=== PATIENT | female | born 1945 | race Caucasian/White ===

== ENCOUNTER 2018-02-12 11:32 | Observation (INO) ==
--- NOTE | 2018-02-12 12:52 | Emergency Department Note ---
Disposition Clinical Impression: Syncope Fracture of proximal end of left humerus Qualifiers: Encounter type: initial encounter Fracture type: closed Fracture alignment: nondisplaced Disposition: Admitted As Inpatient Referrals: Archana Saravia, B[employer] PIERCER [Primary Care Provider] - General Adult HPI - General Chief complaint: ED Fall Stated complaint: fall Time Seen by Provider: 02/12/18 11:39 Source: patient, EMS Limitations: no limitations - History of Present Illness Pain Scale: 7 - Related Data Home Medications Medication Instructions Recorded Confirmed Albuterol Sulfate [Albuterol 1 puff IH QID 06/18/15 01/22/18 Inhaler] FLUoxetine HCl [Prozac] 40 mg PO DAILY 06/18/15 01/22/18 Fenofibrate [Lofibra] 160 mg PO DAILY 06/18/15 01/22/18 Fluticasone Propionate [Flovent 1 puff IH BID 06/18/15 01/22/18 Diskus] Furosemide [Lasix] 40 mg PO DAILY 06/18/15 01/22/18 Ipratropium [Atrovent Inhaler] 2 puff IH QID 06/18/15 01/22/18 Lansoprazole [Prevacid] 30 mg PO DAILY 06/18/15 01/22/18 Lidocaine Patch [Lidoderm 5% patch] 1 appl TP DAILY PRN 06/18/15 01/22/18 OxyCODONE/APAP 5/325 [Percocet 1 each PO Q6HR PRN 06/18/15 01/22/18 5/325 MG] Pravastatin Sodium [Pravachol] 80 mg PO DAILY 06/18/15 01/22/18 hydrOXYzine HCl [Hydroxyzine HCl] 25 mg PO TID PRN 06/18/15 01/22/18 Aspirin [Adult Low Dose Aspirin EC] 81 mg PO DAILY 07/03/15 01/22/18 Albuterol Neb [Proventil Neb] 2.5 mg IH QID 12/24/15 01/22/18 Metoprolol XL (24 HR) Succ [Toprol 12.5 mg PO DAILY 12/24/15 01/22/18 XL] DiphenhydraMINE [Benadryl] 25 mg PO BID PRN 01/22/18 01/22/18 Previous Rx's Medication Instructions Recorded Cyanocobalamin (B-12) [Vitamin B12] 1,000 mcg PO DAILY #90 tablet 07/24/17 Folic Acid 1 tab PO DAILY #90 tablet 07/24/17 Doxycycline 100 mg PO BID #20 capsule 01/22/18 Hydroxyurea [Hydrea] 1 cap PO AD #60 capsule 01/22/18 Allergies Allergy/AdvReac Type Severity Reaction Status Date / Time prednisone Allergy Intermediate Hives Verified 02/12/18 11:39 gabapentin [From Neurontin] AdvReac Unknown Nausea Verified 02/12/18 11:39 ibuprofen AdvReac Unknown Hives Verified 02/12/18 11:39 naproxen [From Naprosyn] AdvReac Unknown Nausea Verified 02/12/18 11:39 Past Medical History - Past Medical History Medical history: Reports: arthritis, asthma, atrial fibrillation, cancer, COPD, coronary artery disease, CVA, GERD, hyperlipidemia, myocardial infarction, osteoporosis, other Surgical history: Reports: appendectomy, cataract, cholecystectomy, hysterectomy , orthopedic, other Psychiatric history: Reports: no psych history ENERGY ASSISTANT history: Reports: no ENERGY ASSISTANT history - Social History Smoking Status: Light tobacco smoker Smokeless Tobacco Status: No Alcohol use: Reports: none Drug use: Reports: none Physical Exam - General Limitations: no limitations General appearance: alert, in distress Course Vital Signs Temperature 98.2 F 02/12/18 11:35 Pulse Rate 79 02/12/18 11:35 Respiratory Rate 18 02/12/18 11:35 Blood Pressure 112/73 02/12/18 11:35 O2 Sat by Pulse Oximetry 97 02/12/18 11:35 Temperature 98.2 F 02/12/18 11:40 Pulse Rate 79 02/12/18 11:40 Respiratory Rate 18 02/12/18 11:40 Blood Pressure 112/73 02/12/18 11:40 O2 Sat by Pulse Oximetry 97 02/12/18 11:40 Oxygen Delivery Oxygen Delivery Room Air Attestation Statement - Attestation Attestation: I examined this patient and my medical decision-making was reviewed with the Resident Physician. I agree with the documented findings, disposition and treatment plan as described except to the extent set forth below. 72-year-old female presented to the emergency room for left shoulder pain after syncopal episode in her bedroom at home. X-ray shows approximately humerus fracture. Patient needs to be admitted for syncope evaluation. That was recent of her fall. She has no chest pain at this time. She said no vomiting or diarrhea. No volume depletion history. Patient was placed in a sling and swath. Admit for syncope workup.
--- NOTE | 2018-02-12 12:54 | Emergency Department Note ---
Disposition Clinical Impression: Fracture of proximal end of left humerus Qualifiers: Encounter type: initial encounter Fracture type: closed Fracture morphology: unspecified fracture morphology Qualified Code(s): S42.202A - Unspecified fracture of upper end of left humerus, initial encounter for closed fracture Syncope Qualifiers: Syncope type: unspecified Qualified Code(s): R55 - Syncope and collapse Fracture of neck of humerus Qualifiers: Encounter type: initial encounter Fracture type: closed Laterality: left Qualified Code(s): S42.212A - Unspecified displaced fracture of surgical neck of left humerus, initial encounter for closed fracture Disposition: Admitted As Inpatient Condition: Fair Referrals: Archana Saravia, [employer] [Primary Care Provider] - Forms: ED Satisfaction Letter Time of Disposition: 14:21 Fall HPI - General Chief Complaint: ED Fall Stated Complaint: fall Time Seen by Provider: 02/12/18 11:39 Source: patient, EMS Mode of arrival: ambulatory Limitations: no limitations Nursing Notes Reviewed: Yes Vital Signs Reviewed: Yes - History of Present Illness HPI Narrative: Patient is a 72-year-old female who presents to [facility] ED status post fall. Patient states she was just standing there after going from her kitchen over to the living room and all of a sudden passed out. Denies any nausea, vomiting, fever or chills. No chest pain, difficulty breathing, abdominal pain, problems with urination or bowel movements. Patient fell and states she does remember hitting the floor. Denies any head or neck injury. States her left shoulder down to her left elbow hurts. 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 Denies: headache, neck pain , weakness, chest pain, shortness of breath, abdominal pain, unable to walk - Related Data Home Medications Medication Instructions Recorded Confirmed Albuterol Sulfate [Albuterol 1 puff IH QID 06/18/15 02/12/18 Inhaler] FLUoxetine HCl [Prozac] 40 mg PO DAILY 06/18/15 02/12/18 Fenofibrate [Lofibra] 160 mg PO DAILY 06/18/15 02/12/18 Fluticasone Propionate [Flovent 1 puff IH BID 06/18/15 02/12/18 Diskus] Furosemide [Lasix] 40 mg PO DAILY 06/18/15 02/12/18 Ipratropium [Atrovent Inhaler] 2 puff IH QID 06/18/15 02/12/18 Lansoprazole [Prevacid] 30 mg PO DAILY 06/18/15 02/12/18 Lidocaine Patch [Lidoderm 5% patch] 1 appl TP DAILY PRN 06/18/15 02/12/18 OxyCODONE/APAP 5/325 [Percocet 1 each PO Q6HR PRN 06/18/15 02/12/18 5/325 MG] Pravastatin Sodium [Pravachol] 80 mg PO DAILY 06/18/15 02/12/18 hydrOXYzine HCl [Hydroxyzine HCl] 25 mg PO TID PRN 06/18/15 02/12/18 Aspirin [Adult Low Dose Aspirin EC] 81 mg PO DAILY 07/03/15 02/12/18 Albuterol Neb [Proventil Neb] 2.5 mg IH QID 12/24/15 02/12/18 Metoprolol XL (24 HR) Succ [Toprol 12.5 mg PO DAILY 12/24/15 02/12/18 XL] DiphenhydraMINE [Benadryl] 25 mg PO BID PRN 01/22/18 02/12/18 Hydroxyurea [Hydrea] 500 mg PO Q48H 02/12/18 02/12/18 Previous Rx's Medication Instructions Recorded Cyanocobalamin (B-12) [Vitamin B12] 1,000 mcg PO DAILY #90 tablet 07/24/17 Folic Acid 1 tab PO DAILY #90 tablet 07/24/17 Allergies Allergy/AdvReac Type Severity Reaction Status Date / Time prednisone Allergy Intermediate Hives Verified 02/12/18 11:39 gabapentin [From Neurontin] AdvReac Unknown Nausea Verified 02/12/18 11:39 ibuprofen AdvReac Unknown Hives Verified 02/12/18 11:39 naproxen [From Naprosyn] AdvReac Unknown Nausea Verified 02/12/18 11:39 All systems ED: reviewed and negative except as stated. Fall PMH - Past Medical History Medical history: Reports: arthritis, asthma, atrial fibrillation, cancer, COPD, coronary artery disease, CVA, GERD, hyperlipidemia, myocardial infarction, osteoporosis, other Surgical history: Reports: appendectomy, cataract, cholecystectomy, hysterectomy , orthopedic, other Psychiatric history: Reports: no psych history PHOTOGRAPHER ASSISTANT history: Reports: no PHOTOGRAPHER ASSISTANT history - Social History Smoking Status: Light tobacco smoker Alcohol use: Reports: none Drug use: Reports: none Physical Exam - General Limitations: no limitations General appearance: alert, in distress - Head Head exam: atraumatic, normocephalic, normal inspection - Eye Eye exam: Present: normal appearance, PERRL, EOMI - ENT ENT exam: normal exam, normal oropharynx, mucous membranes moist - Neck Neck exam: Present: normal inspection, full ROM, trachea midline - Chest Chest inspection: Present: normal inspection, symmetric chest wall rise - Respiratory Respiratory exam: Present: normal lung sounds bilaterally - Cardiovascular Cardiovascular exam: Present: regular rate, normal rhythm, systolic murmur - Abdominal Exam Abdominal exam: Present: soft, Non-Tender. Absent: tenderness, distention, guarding, rebound, rigidity - Expanded Upper Extremity Exam Shoulder exam: Present: tenderness. Absent: full ROM Arm exam: Present: tenderness Elbow exam: Present: tenderness Forearm/Wrist exam: Present: tenderness Hand exam: Present: normal inspection Neurosensory exam: Normal: radial nerve, ulnar nerve, median nerve, axillary nerve Vascular exam: Normal: capillary refill, radial pulse - Back Exam Back exam: Present: normal inspection, full ROM. Absent: tenderness, vertebral tenderness - Neurological Exam Neurological exam: Present: alert, oriented X3. Absent: motor sensory deficit - Psychiatric Psychiatric exam: Present: normal affect, normal mood - Skin Skin exam: Present: warm, dry, intact, normal color Course Course Narrative: Patient seen and examined. Left-sided shoulder pain status post fall. Appears patient has had a syncopal episode. Will do syncopal workup and likely admit. - Reevaluation(s) Reevaluation #1: Labwork shows a mild leukocytosis, suspect this is more likely reactive. Chest x-ray and EKG unchanged from before. We will admit for syncopal workup. Her shoulder x-ray does show a left sided humeral neck fracture that is nondisplaced. I discussed with orthopedic surgeon Dr. Hughes who will consult on the patient. States this is non-op management and will just require a sling. I discussed with hospitalist Dr. Robert who has accepted patient for admission. Time: 14:20 Vital Signs Temperature 98.2 F 02/12/18 11:35 Pulse Rate 79 02/12/18 11:35 Respiratory Rate 18 02/12/18 11:35 Blood Pressure 112/73 02/12/18 11:35 O2 Sat by Pulse Oximetry 97 02/12/18 11:35 Temperature 98.2 F 02/12/18 11:40 Pulse Rate 61 02/12/18 13:45 Respiratory Rate 18 02/12/18 11:40 Blood Pressure 140/61 02/12/18 13:45 O2 Sat by Pulse Oximetry 97 02/12/18 11:40 Oxygen Delivery Oxygen Delivery Room Air Fall - Medical Records Medical records reviewed: Yes I reviewed the patient's medical records. - Lab Data Lab results reviewed: Yes I reviewed the patient's lab results. Result diagrams: 02/12/18 12:52 02/12/18 12:52 Lab Results 02/12/18 02/12/18 Range/Units 12:52 12:52 WBC 16.1 H (4.3-11.1) K/mcL RBC 3.08 L (3.82-4.97) M/mcL Hgb 11.0 L (11.5-15.4) g/dL Hct 32.8 L (35.3-44.9) % MCV 106.5 H (83.0-100.0) fL MCH 35.7 H (28.0-33.3) pg MCHC 33.5 (31.6-35.5) g/dL RDW 13.2 (11.5-14.5) % Plt Count 454 H (140-400) K/mcL MPV 10.4 (9.4-12.4) fL Immature Gran % 0.4 (0-4) % Seg Neutrophils % 83.1 % Lymphocytes % 8.3 % Monocytes % 6.9 % Eosinophils % 1.1 % Basophils % 0.2 % Neutrophils # 13.4 H (1.6-8.9) K/mcL Lymphocytes # 1.3 (0.6-4.6) K/mcL Monocytes # 1.1 (0.0-1.3) K/mcL Eosinophils # 0.2 (0.0-0.6) K/mcL Basophils # 0.0 (0.0-0.2) K/mcL Sodium 138 (136-145) mEq/L Potassium 4.4 (3.5-5.1) mEq/L Chloride 106 (98-107) mEq/L Carbon Dioxide 30 H (23-29) mEq/L Creatinine 0.87 (0.60-1.20) mg/dL Est GFR ( Amer) > 60 (> 60) Est GFR (Non-Af Amer) > 60 (> 60) Glucose 108 H (70-105) mg/dL Calcium 8.9 (8.6-10.3) mg/dL Troponin I < 0.03 (< 0.04) ng/mL - Radiology Data Radiology results reviewed: Yes I reviewed the patient's radiology results. Chest X-Ray 02/12/18 12:05 IMPRESSION: 1. Acute fracture noted through the left humeral head and neck. 2. No acute cardiopulmonary disease. 3. Unremarkable radiographs of the left wrist and elbow. 4. There is a radiopaque foreign body noted along the right paramidline of the upper chest, of uncertain etiology. D/ /12/2018 13:22:11 Tima Rodriguez MD / eulogio Interpreting Provider: Tima Rodriguez MD Elbow X-Ray 02/12/18 12:06 IMPRESSION: 1. Acute fracture noted through the left humeral head and neck. 2. No acute cardiopulmonary disease. 3. Unremarkable radiographs of the left wrist and elbow. 4. There is a radiopaque foreign body noted along the right paramidline of the upper chest, of uncertain etiology. D/ /12/2018 13:22:11 Tima Rodriguez MD / eulogio Interpreting Provider: Tima Rodriguez MD Shoulder X-Ray 02/12/18 12:06 IMPRESSION: 1. Acute fracture noted through the left humeral head and neck. 2. No acute cardiopulmonary disease. 3. Unremarkable radiographs of the left wrist and elbow. 4. There is a radiopaque foreign body noted along the right paramidline of the upper chest, of uncertain etiology. D/ /12/2018 13:22:11 Tima Rodriguez MD / eulogio Interpreting Provider: Tima Rodriguez MD Wrist X-Ray 02/12/18 12:06 IMPRESSION: 1. Acute fracture noted through the left humeral head and neck. 2. No acute cardiopulmonary disease. 3. Unremarkable radiographs of the left wrist and elbow. 4. There is a radiopaque foreign body noted along the right paramidline of the upper chest, of uncertain etiology. D/ / 02/12/2018 13:22:11 Tima Rodriguez MD / eulogio Interpreting Provider: Tima Rodriguez MD - EKG Data EKG attestation: Yes I reviewed and interpreted this EKG. EKG results narrative: EKG done at 1143 shows normal sinus rhythm with a rate of [address] elevation or depression noted. Left axis deviation. Inverted T waves in lead 3 and flattened T waves in leads aVF, V5 and V6. These are new compared to prior EKG done 05/18/2016.
[2018-02-12 13:11] LABS: Basophils % 0.2 %; Eosinophils # 0.2 K/mcL (0.0-0.6); Eosinophils % 1.1 %; Hematocrit 32.8 % (35.3-44.9); Immature Granulocytes % 0.4 % (0-4); Lymphocytes # 1.3 K/mcL (0.6-4.6); Lymphocytes % 8.3 %; Mean Corpuscular HGB Conc 33.5 g/dL (31.6-35.5); Mean Corpuscular Hemoglobin 35.7 pg (28.0-33.3); Mean Corpuscular Volume 106.5 fL (83.0-100.0); Mean Platelet Volume 10.4 fL (9.4-12.4); Monocytes # 1.1 K/mcL (0.0-1.3); Monocytes % 6.9 %; Neutrophils # 13.4 K/mcL (1.6-8.9); Platelet Count 454 K/mcL (140-400); Red Blood Count 3.08 M/mcL (3.82-4.97); Red Cell Distribution Width 13.2 % (11.5-14.5); Segmented Neutrophils % 83.1 %
[2018-02-12 13:28] LABS: Calcium 8.9 mg/dL (8.6-10.3); Carbon Dioxide 30 mEq/L (23-29); Chloride 106 mEq/L (98-107); Glucose 108 mg/dL (70-105); Potassium 4.4 mEq/L (3.5-5.1); Sodium 138 mEq/L (136-145); eGFR For Non-African Americans > 60 (> 60)
[2018-02-12 13:29] LABS: Troponin I < 0.03 ng/mL (< 0.04)
[2018-02-12] MEDS ORDERED: *HR* FentaNYL (PF) 100 MCG/2 ML VIAL IVP ONE (13:39)
[2018-02-12 14:30] LABS: BUN/Creatinine Ratio 7 (6-26); Blood Urea Nitrogen 6 mg/dL (8-23); Osmolality,Calculated 284 (280-300)
[2018-02-12] MEDS ORDERED: Naloxone 0.4 MG/ML INJ IVP PRN (15:38)
[2018-02-12] MEDS ORDERED: Acetaminophen 325 MG TABLET PO PRN (15:38)
[2018-02-12] MEDS ORDERED: hydrOXYzine pamoate 25 MG CAPSULE PO PRN (15:52)
[2018-02-12] MEDS ORDERED: Hydroxyurea 500 MG CAPSULE PO SCH (16:00)
[2018-02-12] MEDS ORDERED: Nicotine 7 MG PATCH.TD24 TD PRN (16:07)
--- NOTE | 2018-02-12 16:09 | Internal Med History&Physical ---
<Alfonso Braga Lacy - Last Filed: 02/12/18 15:47> Date of Encounter: 02/12/18 Time of Encounter: 15:48 Internal Medicine - H&P: HPI Chief complaint: syncope/fall Admitted From: Emergency Dept Plans for Post Hospital Care: Home History of present illness: Ms. Campos is a 72 year old female with a past medical history of arthritis, asthma, atrial fibrillation, hysterectomy secondary to cervical pathology, COPD , coronary artery disease, CVA, GERD, hyperlipidemia, myocardial infarction, osteoporosis, essential thrombocytosis. She presented to the [place] ED after a syncopal episode with a fall. She states she was standing in her kitchen and when she walked into her bedroom she stopped because she was short of breath, at which point she felt light headed and blacked out, waking up on the ground. She does not remember if she hit her head or not. Upon waking she called for help from her home health aide, the fall was not witnessed. She denied chest pain, palpitations, or vertigo prior to the fall. She also mentions increased cough and sputum production recently. She smokes 5 cigarettes per day and has a 25 pack year history. She denies drug or alcohol use. She denies recent travel. She does complain of lower extremity weakness secondary to pain from knee replacements and deconditioning. Past Med Surg Social Fam HX - Past Medical History Medical history: arthritis, asthma, atrial fibrillation, cancer, COPD, coronary artery disease, CVA, GERD, hyperlipidemia, myocardial infarction, osteoporosis, other Additional medical history: CA of blood, OA, IBS Psychiatric history: depression - Past Surgical History Surgical History: appendectomy, cataract, cholecystectomy, hysterectomy, orthopedic, other Additional surgical history: left knee, left shoulder, right shoulder, nicolasa hips , nicolasa feet - Social History Smoking Status: Light tobacco smoker Smokeless Tobacco Status: No Alcohol use: none Drug use: none - Family History Mother History Unknown: Yes Father History Unknown: Yes Internal Medicine - H&P: Meds Albuterol Sulfate [Albuterol Inhaler] 1 puff IH QID 06/18/15 [History] FLUoxetine HCl [Prozac] 40 mg PO DAILY 06/18/15 [History] Fenofibrate [Lofibra] 160 mg PO DAILY 06/18/15 [History] Fluticasone Propionate [Flovent Diskus] 1 puff IH BID 06/18/15 [History] Furosemide [Lasix] 40 mg PO DAILY 06/18/15 [History] Ipratropium [Atrovent Inhaler] 2 puff IH QID 06/18/15 [History] Lansoprazole [Prevacid] 30 mg PO DAILY 06/18/15 [History] Lidocaine Patch [Lidoderm 5% patch] 1 appl TP DAILY PRN 06/18/15 [History] OxyCODONE/APAP 5/325 [Percocet 5/325 MG] 1 each PO Q6HR PRN 06/18/15 [History] Pravastatin Sodium [Pravachol] 80 mg PO DAILY 06/18/15 [History] hydrOXYzine HCl [Hydroxyzine HCl] 25 mg PO TID PRN 06/18/15 [History] Aspirin [Adult Low Dose Aspirin EC] 81 mg PO DAILY 07/03/15 [History] Albuterol Neb [Proventil Neb] 2.5 mg IH QID 12/24/15 [History] Metoprolol XL (24 HR) Succ [Toprol XL] 12.5 mg PO DAILY 12/24/15 [History] Cyanocobalamin (B-12) [Vitamin B12] 1,000 mcg PO DAILY #90 tablet 07/24/17 [Rx] Folic Acid 1 tab PO DAILY #90 tablet 07/24/17 [Rx] DiphenhydraMINE [Benadryl] 25 mg PO BID PRN 01/22/18 [History] Hydroxyurea [Hydrea] 500 mg PO Q48H 02/12/18 [History] 3 Allergy/AdvReac Type Severity Reaction Status Date / Time prednisone Allergy Intermediate Hives Verified 02/12/18 11:39 gabapentin [From Neurontin] AdvReac Unknown Nausea Verified 02/12/18 11:39 ibuprofen AdvReac Unknown Hives Verified 02/12/18 11:39 naproxen [From Naprosyn] AdvReac Unknown Nausea Verified 02/12/18 11:39 All Systems PM: A 10-system review of systems was performed and is negative for pertinent findings except as documented above in the HPI. - Constitutional Constitutional: fatigue, falls, no chills, no fever(s) - EENT Eyes: no other visual disturbances Ears: no other Nose, mouth and throat: no other - Cardiovascular Cardiovascular ROS IM: dyspnea on exertion, lightheadedness, syncope, no diaphoresis, no irregular heart rhythm, no palpitations - Respiratory Respiratory: cough, dyspnea on exertion, excessive phlegm production, no hemoptysis - Gastrointestinal Gastrointestinal: no other - Genitourinary Genitourinary: no urinary frequency, no urinary urgency - Musculoskeletal Musculoskeletal ROS IM: deformity, muscle weakness - Neurological Neurological ROS: frequent falls, vertigo, no abnormal speech, no behavioral changes, no confusion, no focal weakness, no headache(s), no loss of vision, no memory loss, no numbness - Psychiatric Psychiatric: depression, no confusion - Hematologic/Lymphatic Hematologic/Lymphatic: no easy bruising - Constitutional Vitals: Temp Pulse Resp BP Pulse Ox 98.2 F 66 16 128/66 96 02/12/18 11:40 02/12/18 14:00 02/12/18 14:00 02/12/18 14:00 02/12/18 14:32 Exam: Patient in no acute distress, alert and oriented 3 Cranial nerves II through XII intact Heart in regular rate and rhythm, 2/6 systolic murmur, no gallop Diffuse scattered wheezes auscultated, no rales or rhonchi Abdomen soft and nontender, bowel sounds normal, no organomegaly Sensation intact and equal in all [address] on left upper extremity, capillary refill and sensation and motor strength intact in left upper extremity No focal neural deficits noted Skin warm and dry Internal Med - H&P Results - Labs CBC & Chem 7: 02/12/18 12:52 02/12/18 12:52 - Assessment and plan (1) Syncope Current Visit: Yes Status: Acute Assessment and plan: Patient presented for episode of syncope with fall, she states she has a history of multiple falls X-ray in the emergency department revealed left proximal humerus fracture Orthopedic surgery was consulted who recommended conservative management with sling Chest x-ray revealed no acute process Troponin less than 0.3 EKG showed new T-wave flattening otherwise normal CBC showed thrombocytosis and elevated white count BMP noncontributory Plan Differential includes stroke, valvular abnormality, medications, arrhythmia Head CT, echocardiogram, carotid duplex ordered and pending Patient is being admitted on continuous telemetry UA and UDS ordered and pending Serial troponins ordered and pending We will continue to monitor and follow up on labs and imaging Qualifiers: Syncope type: unspecified Qualified Code(s): R55 - Syncope and collapse (2) Fracture of neck of humerus Current Visit: Yes Status: Acute Assessment and plan: Patient is in sling and comfortable Capillary refill, pulses, sensation, motor intact in left upper extremity Plan Continue sling with outpatient follow-up with orthopedics after discharge Pain control with Percocet every 6 hours when necessary Rest of plan as seen above Qualifiers: Encounter type: initial encounter Fracture type: closed Laterality: left Qualified Code(s): S42.212A - Unspecified displaced fracture of surgical neck of left humerus, initial encounter for closed fracture (3) Tobacco abuse Current Visit: Yes Status: Acute Assessment and plan: Patient admits to [id number] history and current cigarette use Patient was counseled on dangers of continued tobacco abuse and benefits of cessation Plan Nicotine patch as needed for cravings We will continue to activities counselor on smoking cessation (4) COPD (chronic obstructive pulmonary disease) with emphysema Current Visit: Yes Status: Acute Assessment and plan: Patient self-reported history of COPD with emphysema Treated at home in stable on bronchodilator therapy Patient is saturating in the 90s on room air Plan Continue patient's home medications of albuterol, Flovent, ipratropium, albuterol nebulizer Qualifiers: Emphysema type: unspecified Qualified Code(s): J43.9 - Emphysema, unspecified (5) CAD (coronary artery disease) Current Visit: Yes Status: Acute Assessment and plan: Patient has history of UT at the age of 44 She has history of recent stress test in November that was uneventful She has history of catheterization without stent placement She does follow with cardiology outpatient Plan Continue home medications of aspirin, pravachol, toprol Qualifiers: Coronary Disease-Associated Artery/Lesion type: [place] artery [place] vs. transplanted heart: [place] heart Associated angina: without angina Qualified Code(s): I25.10 - Atherosclerotic heart disease of [place] coronary artery without angina pectoris (6) Hypertension Current Visit: Yes Status: Acute Assessment and plan: Patient with history of chronic hypertension, blood pressure stable here Plan Continue home medication of Toprol Qualifiers: Qualified Code(s): I10 - Essential (primary) hypertension - Time Spent With Patient Total time spent is greater than 50% in coordination of care (as documented) at patient's floor/unit and/or counseling patient: 25 - 35 minutes <Magdiel Ramos - Last Filed: 02/12/18 17:22> Date of Encounter: 02/12/18 Internal Medicine - H&P: HPI History of present illness: Ms. Campos is a 72 year old female All Systems PM: A 10-system review of systems was performed and is negative for pertinent findings except as documented above in the HPI. - Constitutional Vitals: Temp Pulse Resp BP Pulse Ox 97.9 F 69 16 116/72 93 02/12/18 17:15 02/12/18 17:15 02/12/18 17:15 02/12/18 17:15 02/12/18 17:15 Internal Med - H&P Results - Labs CBC & Chem 7: 02/12/18 12:52 02/12/18 12:52 - Assessment and plan (1) Syncope Current Visit: Yes Status: Acute Qualifiers: Syncope type: unspecified Qualified Code(s): R55 - Syncope and collapse (2) Fracture of neck of humerus Current Visit: Yes Status: Acute Qualifiers: Encounter type: initial encounter Fracture type: closed Laterality: left Qualified Code(s): S42.212A - Unspecified displaced fracture of surgical neck of left humerus, initial encounter for closed fracture (3) Tobacco abuse Current Visit: Yes Status: Acute (4) COPD (chronic obstructive pulmonary disease) with emphysema Current Visit: Yes Status: Acute Qualifiers: Emphysema type: unspecified Qualified Code(s): J43.9 - Emphysema, unspecified (5) CAD (coronary artery disease) Current Visit: Yes Status: Acute Qualifiers: Coronary Disease-Associated Artery/Lesion type: [place] artery [place] vs. transplanted heart: [place] heart Associated angina: without angina Qualified Code(s): I25.10 - Atherosclerotic heart disease of [place] coronary artery without angina pectoris (6) Hypertension Current Visit: Yes Status: Acute Qualifiers: Qualified Code(s): I10 - Essential (primary) hypertension - Time Spent With Patient Total time spent is greater than 50% in coordination of care (as documented) at patient's floor/unit and/or counseling patient: - Attending Attestation I examined this patient and my medical decision-making was reviewed with the Resident Physician Dr. Braga. I agree with the documented findings, disposition and treatment plan as described except to the extent set forth below. Ms. Campos is a 72 year old female with a past medical history of arthritis, asthma, atrial fibrillation, hysterectomy secondary to cervical pathology, COPD , coronary artery disease, CVA, GERD, hyperlipidemia, myocardial infarction, osteoporosis, essential thrombocytosis. She presented to the [place] ED after a syncopal episode with a fall. She did not provide clear history about fall, loss of consciousness. She did have syncopal episode in the past too. She happened to have Left humeral fx Gen: A, A< O x 3 Chest: Diminished BS b/l Heart: S1S2+ RRR Ext: sling on Left arm.. Limited ROM in Left shoulder a/p 1. Syncope on tele check serial trop concerning for cardiac arrythamias need holter monitor for 1-2 weeks upon d/c home Ortho stats slightly positive too will check Ortho stat vitals in AM too 2D Echo, carotid doppler - P 2. Left humerus fx - Ortho consulted
[2018-02-12] MEDS ORDERED: Ipratropium 1 PUFF INHALER IH SCH (17:00)
[2018-02-12] MEDS ORDERED: Albuterol 2.5 MG/3 ML NEBULIZER IH SCH (17:00)
[2018-02-12 17:14] LABS: Prothrombin Time 11.7 Seconds (9.4-12.1)
[2018-02-12] MEDS: *HR* OxyCODONE/APAP 5/325 TABLET PO PRN ×2 (17:29→23:53)
[2018-02-12] MEDS ORDERED: Beclomethasone 80mcg MDI IH SCH (22:00)
[2018-02-12] MEDS: Albuterol 2.5 MG/3 ML NEBULIZER IH SCH (22:36)
[2018-02-12] MEDS: Ipratropium 1 PUFF INHALER IH SCH (22:36)
[2018-02-13 01:19] LABS: Basophils % 0.3 %; Eosinophils # 0.2 K/mcL (0.0-0.6); Eosinophils % 2.4 %; Hematocrit 28.7 % (35.3-44.9); Hemoglobin 9.5 g/dL (11.5-15.4); Immature Granulocytes % 0.3 % (0-4); Mean Corpuscular HGB Conc 33.1 g/dL (31.6-35.5); Mean Corpuscular Hemoglobin 34.4 pg (28.0-33.3); Mean Platelet Volume 10.7 fL (9.4-12.4); Monocytes # 1.1 K/mcL (0.0-1.3); Monocytes % 15.7 %; Neutrophils # 3.9 K/mcL (1.6-8.9); Platelet Count 414 K/mcL (140-400); Red Blood Count 2.76 M/mcL (3.82-4.97); Red Cell Distribution Width 13.4 % (11.5-14.5); Segmented Neutrophils % 55.3 %
[2018-02-13 01:21] LABS: Lymphocytes # 1.9 K/mcL (0.6-4.6)
[2018-02-13 01:40] LABS: BUN/Creatinine Ratio 9 (6-26); Blood Urea Nitrogen 8 mg/dL (8-23); Calcium 8.6 mg/dL (8.6-10.3); Carbon Dioxide 24 mEq/L (23-29); Chloride 104 mEq/L (98-107); Glucose 122 mg/dL (70-105); Osmolality,Calculated 280 (280-300); Potassium 4.2 mEq/L (3.5-5.1); Sodium 135 mEq/L (136-145); eGFR For Non-African Americans > 60 (> 60)
[2018-02-13] MEDS: Albuterol 2.5 MG/3 ML NEBULIZER IH SCH ×2 (03:49→10:47)
[2018-02-13] MEDS: Ipratropium 1 PUFF INHALER IH SCH ×2 (03:49→10:47)
[2018-02-13] MEDS: *HR* OxyCODONE/APAP 5/325 TABLET PO PRN (06:02)
--- NOTE | 2018-02-13 08:57 | Electrocardiograph Report ---
[facility] Test Date: 2018-02-12 Pat Name: Azul Campos Department: EXAM8 Room: [facility] Gender: F Acute Care Certified Nursing Assistant: : 1945 Requested By: Andrea Guidry Order Number: [id number] Reading MD: Rogelio Scott Measurements Intervals Whitt Rate: 76 P: -9 OR: 131 QRS: 0 QRSD: 85 T: 0 QT: 392 QTc: 441 Interpretive Statements Sinus rhythm Low voltage, precordial leads Borderline T abnormalities, anterior leads, present 05/2016 Electronically Signed On 02-13-2018 8:55:08 EDT by Rogelio Scott
[2018-02-13] MEDS ORDERED: Furosemide 40 MG TABLET PO SCH (09:00)
[2018-02-13] MEDS ORDERED: Cyanocobalamin (B-12) 1,000 MCG TABLET PO SCH (09:00)
[2018-02-13] MEDS ORDERED: FLUoxetine 20 MG CAPSULE PO SCH (09:00)
[2018-02-13] MEDS ORDERED: Aspirin Enteric Coated 81 MG Tablet PO SCH (09:00)
[2018-02-13] MEDS ORDERED: Fenofibrate 54 MG TABLET PO SCH (09:00)
[2018-02-13] MEDS ORDERED: Folic Acid 1 MG TABLET PO SCH (09:00)
[2018-02-13] MEDS ORDERED: Metoprolol XL (24 HR) Succ 25 MG TAB.ER.24H PO SCH (09:00)
--- NOTE | 2018-02-13 09:44 | Internal Med Progress Note ---
Hospitalist Progress Note - Encounter Date of Encounter: 02/13/18 Time of Encounter: 09:38 - Subjective Interval History: Patient seen and examined this morning, no acute events overnight Patient states that she had conversations with multiple doctors last night who advised her that she did not need echocardiogram or carotid Dopplers I have not seen any documentation of these conversations, I advised her that we are still recommending these tests to rule out cardiovascular etiology of her syncopal episodes resulting in falls She has stated that she is not willing to have these tests, I explained to her the importance of ruling out dangerous causes of her syncope, she is adamant that these other doctors said she does not need these tests and she agrees with them I advised her that she has the autonomy to leave AGAINST MEDICAL ADVICE however it is not what we are recommending - Exam Vitals: Temp Pulse Resp BP Pulse Ox 98.2 F 69 16 105/56 93 02/13/18 06:15 02/13/18 06:15 02/13/18 06:15 02/13/18 06:15 02/13/18 06:15 Exam: Patient in no acute distress, alert and oriented 3 Cranial nerves II through XII intact Heart in regular rate and rhythm, 2/6 systolic murmur, no gallop Diffuse scattered wheezes auscultated, no rales or rhonchi Abdomen soft and nontender, bowel sounds normal, no organomegaly Sensation intact and equal in all [address] on left upper extremity, capillary refill and sensation and motor strength intact in left upper extremity No focal neural deficits noted Skin warm and dry - Assessment and Plan (1) Syncope Current Visit: Yes Status: Acute Assessment and Plan: Patient presented for episode of syncope with fall, she states she has a history of multiple falls X-ray in the emergency department revealed left proximal humerus fracture Orthopedic surgery was consulted who recommended conservative management with sling Chest x-ray revealed no acute process Troponin less than 0.3 EKG showed new T-wave flattening otherwise normal CBC showed thrombocytosis and elevated white count BMP noncontributory Head CT negative for acute process or bleed serial troponins negative Plan Differential includes stroke, valvular abnormality, medications, arrhythmia echocardiogram, carotid duplex ordered and pending Patient is being monitored on continuous telemetry UA and UDS ordered and pending PT/OT consulted, older adult social work specialist consulted We will continue to monitor and follow up on labs and imaging (2) Fracture of neck of humerus Current Visit: Yes Status: Acute Assessment and Plan: Patient is in sling and comfortable Capillary refill, pulses, sensation, motor intact in left upper extremity Plan Continue sling with outpatient follow-up with orthopedics after discharge Pain control with Percocet every 6 hours when necessary Orthopedics consulted and recommends sling and outpatient follow up Rest of plan as seen above (3) Tobacco abuse Current Visit: Yes Status: Acute Assessment and Plan: Patient admits to [id number] history and current cigarette use Patient was counseled on dangers of continued tobacco abuse and benefits of cessation Plan Nicotine patch as needed for cravings We will continue to world travel counselor on smoking cessation (4) COPD (chronic obstructive pulmonary disease) with emphysema Current Visit: Yes Status: Acute Assessment and Plan: Patient self-reported history of COPD with emphysema Treated at home in stable on bronchodilator therapy Patient is saturating in the 90s on room air Plan Continue patient's home medications of albuterol, Flovent, ipratropium, albuterol nebulizer (5) CAD (coronary artery disease) Current Visit: Yes Status: Acute Assessment and Plan: Patient has history of [place] at the age of 44 She has history of recent stress test in November that was uneventful She has history of catheterization without stent placement She does follow with cardiology outpatient Plan Continue home medications of aspirin, pravachol, toprol (6) Hypertension Current Visit: Yes Status: Acute Assessment and Plan: Patient with history of chronic hypertension, blood pressure stable here Plan Continue home medication of Toprol - Time Spent with Patient Total time spent is greater than 50% in coordination of care (as documented) at patient's floor/unit and/or counseling patient: Internal Medicine: Result - Labs CBC & Chem 7: 02/13/18 01:00 02/13/18 01:00 Labs: Short CBC 02/13/18 Range/Units 01:00 WBC 7.1 D (4.3-11.1) K/mcL Hgb 9.5 L D (11.5-15.4) g/dL Hct 28.7 L (35.3-44.9) % Plt Count 414 H (140-400) K/mcL Neutrophils # 3.9 (1.6-8.9) K/mcL BMP 02/13/18 01:00 Sodium 135 L Potassium 4.2 Chloride 104 Carbon Dioxide 24 BUN 8 Creatinine 0.85 Glucose 122 H Calcium 8.6 Cardiac Enzymes 02/12/18 02/13/18 02/13/18 Range/Units 19:20 01:00 06:53 Troponin I < 0.03 < 0.03 < 0.03 (< 0.04) ng/mL - ABG Interpretation ABG results: PT/INR, D-dimer PT 11.7 Seconds (9.4-12.1) 02/12/18 16:36 - Impressions Impressions Head CT 02/12/18 15:52 IMPRESSION: A small amount of low-density is noted in the white matter, likely small vessel ischemic change Nose no acute hemorrhage. D/ / Syed Acosta / Syed Acosta Interpreting Provider: Syed Acosta Consult Discharge Plan - Plan Additional Instructions: PLEASE CALL YOUR PCP, GO TO THE NEAREST EMERGENCY ROOM OR CALL 02-03-, IF YOU FEEL DIZZY, SHORT OF BREATH, UNWELL, IF SYMPTOMS RETURN OR WORSEN. PLEASE USE ICE PACKS ON YOUR LEFT ARM FRACTURE FOR PAIN AND SWELLING. PLEASE KEEP LEFT ARM IN SLING TO PROVIDE SUPPORT AND PREVENT FURTHER INJURY. Referrals: Magdaleno Hughes MD [Non-Partnered Physician] - 02/22/18 11:20 am (7-10 DAYS) (1) Syncope Qualifiers: Syncope type: unspecified Qualified Code(s): R55 - Syncope and collapse (2) Fracture of neck of humerus Qualifiers: Encounter type: initial encounter Fracture type: closed Laterality: left Qualified Code(s): S42.212A - Unspecified displaced fracture of surgical neck of left humerus, initial encounter for closed fracture (4) COPD (chronic obstructive pulmonary disease) with emphysema Qualifiers: Emphysema type: unspecified Qualified Code(s): J43.9 - Emphysema, unspecified (5) CAD (coronary artery disease) Qualifiers: Coronary Disease-Associated Artery/Lesion type: [place] artery [place] vs. transplanted heart: [place] heart Associated angina: without angina Qualified Code(s): I25.10 - Atherosclerotic heart disease of [place] coronary artery without angina pectoris
--- NOTE | 2018-02-13 10:06 | Orthopedic Consult Note ---
Date of Encounter: 02/13/18 Time of Encounter: 10:04 Assessment and Plan (1) Fracture of proximal end of left humerus Current Visit: Yes Status: Acute The diagnosis and recommended treatment options were discussed with the patient. Recommend to continue with nonoperative management for the left proximal humerus. Continue the sling that she is currently in. Follow up in 1- 2 weeks for repeat x-rays. She may come out of the sling to move her wrist and elbow only, no shoulder motion. Will sign off. Qualifiers: Encounter type: initial encounter Fracture type: closed Fracture morphology: unspecified fracture morphology Qualified Code(s): S42.202A - Unspecified fracture of upper end of left humerus, initial encounter for closed fracture History of Present Illness HPI: Ms. Campos is a 72 year old female with a past medical history of arthritis, asthma, atrial fibrillation, COPD, coronary artery disease, CVA, GERD, hyperlipidemia, myocardial infarction, osteoporosis, essential thrombocytosis admitted after a syncopal episode causing a fall. She became short of breath at home then felt lightheaded and blacked out. She woke up on the ground and does not remember specifically falling. No chest pain prior to fall. Unsure if she hit her head or not. She she was admitted for syncopal workup, in the emergency department she complained of left shoulder pain and an x-ray was obtained which showed a minimally displaced left proximal humerus fracture. She was then placed in a sling and orthopedic was consulted. Past Med Surg Social Fam HX - Past Medical History Medical history: arthritis, asthma, atrial fibrillation, cancer, COPD, coronary artery disease, CVA, GERD, hyperlipidemia, myocardial infarction, osteoporosis, other Additional medical history: CA of blood, OA, IBS Psychiatric history: depression - Past Surgical History Surgical History: appendectomy, cataract, cholecystectomy, hysterectomy, orthopedic, other Additional surgical history: left knee, left shoulder, right shoulder, nicolasa hips , nicolasa feet - Social History Smoking Status: Light tobacco smoker Smokeless Tobacco Status: No Alcohol use: none Drug use: none - Family History Mother History Unknown: Yes Father History Unknown: Yes Age: 66 Living Status: Age at : 66 Cause of : Heart attack Hx Family Cardiac Disorders: Yes (Heart disease) Medications and Allergies Albuterol Sulfate [Albuterol Inhaler] 1 puff IH QID 06/18/15 [History] FLUoxetine HCl [Prozac] 40 mg PO DAILY 06/18/15 [History] Fenofibrate [Lofibra] 160 mg PO DAILY 06/18/15 [History] Fluticasone Propionate [Flovent Diskus] 1 puff IH BID 06/18/15 [History] Furosemide [Lasix] 40 mg PO DAILY 06/18/15 [History] Ipratropium [Atrovent Inhaler] 2 puff IH QID 06/18/15 [History] Lansoprazole [Prevacid] 30 mg PO DAILY 06/18/15 [History] Lidocaine Patch [Lidoderm 5% patch] 1 appl TP DAILY PRN 06/18/15 [History] OxyCODONE/APAP 5/325 [Percocet 5/325 MG] 1 each PO Q6HR PRN 06/18/15 [History] Pravastatin Sodium [Pravachol] 80 mg PO DAILY 06/18/15 [History] hydrOXYzine HCl [Hydroxyzine HCl] 25 mg PO TID PRN 06/18/15 [History] Aspirin [Adult Low Dose Aspirin EC] 81 mg PO DAILY 07/03/15 [History] Albuterol Neb [Proventil Neb] 2.5 mg IH QID 12/24/15 [History] Metoprolol XL (24 HR) Succ [Toprol XL] 12.5 mg PO DAILY 12/24/15 [History] Cyanocobalamin (B-12) [Vitamin B12] 1,000 mcg PO DAILY #90 tablet 07/24/17 [Rx] Folic Acid 1 tab PO DAILY #90 tablet 07/24/17 [Rx] DiphenhydraMINE [Benadryl] 25 mg PO BID PRN 01/22/18 [History] Hydroxyurea [Hydrea] 500 mg PO Q48H 02/12/18 [History] Colesevelam HCl [Welchol] 625 mg PO TIDWM 02/13/18 [History] 3 Allergy/AdvReac Type Severity Reaction Status Date / Time prednisone Allergy Intermediate Hives Verified 02/12/18 11:39 gabapentin [From Neurontin] AdvReac Unknown Nausea Verified 02/12/18 11:39 ibuprofen AdvReac Unknown Hives Verified 02/12/18 11:39 naproxen [From Naprosyn] AdvReac Unknown Nausea Verified 02/12/18 11:39 All Systems Reviewed: The remainder of the systems were reviewed and are negative except as noted in the HPI Physical Exam - Constitutional Vitals: Temp Pulse Resp BP Pulse Ox 98.2 F 69 16 105/56 93 02/13/18 06:15 02/13/18 06:15 02/13/18 06:15 02/13/18 06:15 02/13/18 06:15 Exam: Consult Exam: Constitutional -Vitals reviewed -The patient is well developed and well nourished. -Mood is pleasant. -The patient is well groomed. Psychiatric -The patient is fully alert and oriented x 3. Respiratory: -Respiratory effort normal Abdomen: -Soft abdomen -Non tender -Non distended: Left upper extremity: -No deformities. The overlying skin is intact. Tenderness to palpation at proximal humerus, no tenderness at elbow or wrist -No significant pain with passive motion of the wrist, and fingers within the limits of the bed. -Able to make an "OK" sign, cross the index and long fingers, and extend the thumb. -Sensation grossly intact to light touch throughout the median, radial, and ulnar distributions. -Radial pulse is present; Fingers have good capillary refill. Right upper extremity: -No deformities. The overlying skin is intact. No obvious signs of acute trauma. -No tenderness to palpation throughout. -No significant pain with passive motion of the shoulder, elbow, wrist, and fingers within the limits of the bed. -Able to make an "OK" sign, cross the index and long fingers, and extend the thumb. -Sensation grossly intact to light touch throughout the median, radial, and ulnar distributions. -Radial pulse is present; Fingers have good capillary refill. Left lower extremity: -No deformities. The overlying skin is intact. No obvious signs of acute trauma. -No tenderness to palpation throughout. -No pain with passive motion of the hip, knee, ankle, and toes within the limits of the bed. -No pain with axial loading of the thigh. -Able to dorsiflex and plantarflex the ankle and toes. -Sensation is grossly intact to light touch throughout the sural, saphenous, superficial peroneal, and deep peroneal distributions. -Toes have good capillary refill. Right lower extremity: -No deformities. The overlying skin is intact. No obvious signs of acute trauma. -No tenderness to palpation throughout. -No pain with passive motion of the hip, knee, ankle, and toes within the limits of the bed. -No pain with axial loading of the thigh. -Able to dorsiflex and plantarflex the ankle and toes. -Sensation is grossly intact to light touch throughout the sural, saphenous, superficial peroneal, and deep peroneal distributions. -Toes have good capillary refill. Results - Labs Result Diagrams: 02/13/18 01:00 02/13/18 01:00 Labs: Abnormal lab results RBC 2.76 M/mcL (3.82-4.97) L 02/13/18 01:00 Hgb 9.5 g/dL (11.5-15.4) L D 02/13/18 01:00 Hct 28.7 % (35.3-44.9) L 02/13/18 01:00 MCV 104.0 fL (83.0-100.0) H 02/13/18 01:00 MCH 34.4 pg (28.0-33.3) H 02/13/18 01:00 Plt Count 414 K/mcL (140-400) H 02/13/18 01:00 Sodium 135 mEq/L (136-145) L 02/13/18 01:00 Glucose 122 mg/dL (70-105) H 02/13/18 01:00 LDL Cholesterol, Calc 108 mg/dL (0-99) H 02/12/18 16:36 HDL Cholesterol 31 mg/dL (40-59) L 02/12/18 16:36 Cholesterol/HDL Ratio 5.0 (0-4.9) H 02/12/18 16:36 H & H 02/13/18 Range/Units 01:00 Hgb 9.5 L D (11.5-15.4) g/dL Hct 28.7 L (35.3-44.9) % All other labs normal. - Diagnostic results Shoulder x-ray: report reviewed, image reviewed (XR L shoulder reviewed and shows minimally displaced left proximal humerus fracture) Consult Discharge Plan - Plan Referrals: Magdaleno Hughes MD [Non-Partnered Physician] - (7-10 DAYS)
[2018-02-13 12:01] VITALS: BP 134/62
--- NOTE | 2018-02-13 14:32 | Discharge Summary ---
<Alfonso Braga - Last Filed: 02/13/18 14:26> - NOTES TO OUTPATIENT PROVIDER Notes to Outpatient Provider: Patient presented with fall after a syncopal episode. She was found to have a left proximal humerus fracture, orthopedics consultation and recommended sling and outpatient follow-up. Workup for syncopal episode included chest x-ray, head CT, EKG, troponins that were all negative for acute process. Echocardiogram and carotid duplex were pending when the patient decided to sign out AMA. It is recommended that the patient receive these tests on an outpatient basis in order to rule out cardiovascular etiology for her syncopal episodes. Orders not resulted at time of discharge: Pending orders 02/12/18 15:46 Urine tox screen [Drug Screen, Urine] [[facility]] Routine Date of Encounter: 02/13/18 Time of Encounter: 14:32 - Discharge Diagnosis (1) Syncope Priority: Primary Status: Acute Assessment and Plan: Patient presented for episode of syncope with fall, she states she has a history of multiple falls X-ray in the emergency department revealed left proximal humerus fracture Orthopedic surgery was consulted who recommended conservative management with sling Chest x-ray revealed no acute process Troponin less than 0.3 EKG showed new T-wave flattening otherwise normal CBC showed thrombocytosis and elevated white count BMP noncontributory Head CT negative for acute process or bleed serial troponins negative Patient stated that she was told that echocardiogram and carotid ultrasound were not necessary for her medical care. I told her that I do not see documentation of those conversations and then I still recommend echocardiogram and carotid ultrasound in order to rule out cardiovascular etiology for her syncopal episodes. I explained to her that in absence of these tests she was at risk for further syncopal episodes and falls with possible trauma, and that she is also at risk for other cardiovascular events if there is indeed an underlying pathophysiology causing her syncope. Plan Differential includes stroke, valvular abnormality, medications, arrhythmia echocardiogram, carotid duplex ordered and pending Patient is being monitored on continuous telemetry UA and UDS ordered and pending PT/OT consulted, security services manager consulted Patient left AGAINST MEDICAL ADVICE before these tests could be completed, it is recommended that she follow-up with her primary care provider and perform these tests on an outpatient basis in order to rule out morbid etiologies for her syncopal episodes and falls Qualifiers: Syncope type: unspecified Qualified Code(s): R55 - Syncope and collapse (2) Fracture of neck of humerus Priority: Secondary Status: Acute Assessment and Plan: Patient is in sling and comfortable Capillary refill, pulses, sensation, motor intact in left upper extremity Plan Continue sling with outpatient follow-up with orthopedics after discharge Pain control with Percocet every 6 hours when necessary Orthopedics consulted and recommends sling and outpatient follow up Rest of plan as seen above Qualifiers: Encounter type: initial encounter Fracture type: closed Laterality: left Qualified Code(s): S42.212A - Unspecified displaced fracture of surgical neck of left humerus, initial encounter for closed fracture (3) Tobacco abuse Priority: Secondary Status: Acute Assessment and Plan: Patient admits to [id number] history and current cigarette use Patient was counseled on dangers of continued tobacco abuse and benefits of cessation Plan Nicotine patch as needed for cravings We will continue to licensed professional counselor on smoking cessation (4) COPD (chronic obstructive pulmonary disease) with emphysema Priority: Secondary Status: Acute Assessment and Plan: Patient self-reported history of COPD with emphysema Treated at home in stable on bronchodilator therapy Patient is saturating in the 90s on room air Plan Discharge on patient's home medications of albuterol, Flovent, ipratropium, albuterol nebulizer Qualifiers: Emphysema type: unspecified Qualified Code(s): J43.9 - Emphysema, unspecified (5) CAD (coronary artery disease) Priority: Secondary Status: Acute Assessment and Plan: Patient has history of [place] at the age of 44 She has history of recent stress test in November that was uneventful She has history of catheterization without stent placement She does follow with cardiology outpatient Plan Discharge on home medications of aspirin, pravachol, toprol Qualifiers: Coronary Disease-Associated Artery/Lesion type: [place] artery [place] vs. transplanted heart: [place] heart Associated angina: without angina Qualified Code(s): I25.10 - Atherosclerotic heart disease of [place] coronary artery without angina pectoris (6) Hypertension Priority: Secondary Status: Acute Assessment and Plan: Patient with history of chronic hypertension, blood pressure stable here Plan Discharge on home medication of Toprol Qualifiers: Qualified Code(s): I10 - Essential (primary) hypertension Hospital course: Ms. Campos is a 72 year old female with a past medical history of arthritis, asthma, atrial fibrillation, hysterectomy secondary to cervical pathology, COPD , coronary artery disease, CVA, GERD, hyperlipidemia, myocardial infarction, osteoporosis, essential thrombocytosis. She presented to the [place] ED after a syncopal episode with a fall. She stated she was standing in her kitchen and when she walked into her bedroom she stopped because she was short of breath, at which point she felt light headed and blacked out, waking up on the ground with left shoulder pain. She did not remember if she hit her head or not. Upon waking she called for help from her home health aide, the fall was not witnessed. She denied chest pain, palpitations, or vertigo prior to the fall. She also mentioned increased cough and sputum production recently. She smokes 5 cigarettes per day and has a 25 pack year history. She denied drug or alcohol use. She denied recent travel. She did complain of lower extremity weakness secondary to pain from knee replacements and deconditioning. In the emergency department chest x-ray, EKG, troponins were all performed which were negative for acute process. X-ray of the left humerus, elbow, arm and wrist revealed proximal left humeral fracture. Orthopedic surgery was consulted who recommended the patient be put in a sling and follow-up with them outpatient for management, surgery was not recommended. Upon admission serial troponins, head CT, UA, UDS, echocardiogram, carotid duplex were all ordered. Head CT revealed no acute process, serial troponins were negative. Patient was informed of the reasoning and importance of echocardiogram and carotid duplex to rule out cardiovascular etiology for her syncopal episodes and falls. She was informed that not receiving these tests could leave her at risk for unknown cardiovascular or traumatic complications. She stated that she understood but did not believe that these tests were necessary and that she wanted to leave AGAINST MEDICAL ADVICE. The patient did leave AGAINST MEDICAL ADVICE without completing echocardiogram, carotid duplex, UDA, UDS. Discharge discussed with: patient, nurse, social work - Time Spent with Patient Total time spent providing and/or coordinating discharge services: Greater than 30 minutes - Discharge Medications Home Medications: Albuterol Sulfate [Albuterol Inhaler] 1 puff IH QID 06/18/15 [History] FLUoxetine HCl [Prozac] 40 mg PO DAILY 06/18/15 [History] Fenofibrate [Lofibra] 160 mg PO DAILY 06/18/15 [History] Fluticasone Propionate [Flovent Diskus] 1 puff IH BID 06/18/15 [History] Furosemide [Lasix] 40 mg PO DAILY 06/18/15 [History] Ipratropium [ATROVENT Inhaler] 2 puff IH QID 06/18/15 [History] Lansoprazole [Prevacid] 30 mg PO DAILY 06/18/15 [History] Lidocaine Patch [Lidoderm 5% patch] 1 appl TP DAILY PRN 06/18/15 [History] Pravastatin Sodium [Pravachol] 80 mg PO DAILY 06/18/15 [History] hydrOXYzine HCl [Hydroxyzine HCl] 25 mg PO TID PRN 06/18/15 [History] Aspirin [Adult Low Dose Aspirin EC] 81 mg PO DAILY 07/03/15 [History] Albuterol Neb [Proventil Neb] 2.5 mg IH QID 12/24/15 [History] Metoprolol XL (24 HR) Succ [Toprol Xl] 12.5 mg PO DAILY 12/24/15 [History] Cyanocobalamin (B-12) [Vitamin B12] 1,000 mcg PO DAILY #90 tablet 07/24/17 [Rx] Folic Acid 1 tab PO DAILY #90 tablet 07/24/17 [Rx] Hydroxyurea [Hydrea] 500 mg PO Q48H 02/12/18 [History] Colesevelam HCl [Welchol] 625 mg PO TIDWM 02/13/18 [History] Allergies/Adverse Reactions: 3 Allergy/AdvReac Type Severity Reaction Status Date / Time prednisone Allergy Intermediate Hives Verified 02/12/18 11:39 gabapentin [From Neurontin] AdvReac Unknown Nausea Verified 02/12/18 11:39 ibuprofen AdvReac Unknown Hives Verified 02/12/18 11:39 naproxen [From Naprosyn] AdvReac Unknown Nausea Verified 02/12/18 11:39 Date of admission: 02/12/18 14:54 Primary care physician: Archana Saravia CNP Consults: 02/13/18 10:38 Consult to Datawarehouse Developer [CONS] Routine Reason for SW Consult: ASSESS DISCHARGE NEEDS 02/13/18 10:42 Consult to Occupational Therapy [CONS] Routine Comment: Evaluate, develop and implement POC Reason for Consult: LEFT HUMEROUS FRACTURE- ASSESS FOR SAFETY Does patient have active BEDREST order?: No Is patient medically & hemodynamically stable?: Yes Consult to Physical Therapy [CONS] Routine Comment: Evaluate, develop and implement POC Reason for Consult: LEFT HUMEROUS FRACTURE - ASSESS FOR SAFETY Does patient have active BEDREST order?: No Is patient medically & hemodynamically stable?: Yes Discharging clinician: Alfonso Braga - Constitutional Vitals: Temp Pulse Resp BP Pulse Ox 97.3 F L 113 16 134/62 92 02/13/18 12:00 02/13/18 12:00 02/13/18 12:00 02/13/18 12:00 02/13/18 12:00 Exam: Patient in no acute distress, alert and oriented 3 Cranial nerves II through XII intact Heart in regular rate and rhythm, 2/6 systolic murmur, no gallop Diffuse scattered wheezes auscultated, no rales or rhonchi Abdomen soft and nontender, bowel sounds normal, no organomegaly Sensation intact and equal in all [address] on left upper extremity, capillary refill and sensation and motor strength intact in left upper extremity No focal neural deficits noted Skin warm and dry - Patient Status Disposition: Left Against Medical Advice Condition: Fair Functional capacity at discharge: uses cane/walker Overall status at discharge: patient is not back to baseline - Discharge Instructions Follow Up With: Magdaleno Hughes MD [Non-Partnered Physician] - 02/22/18 11:20 am (7-10 DAYS) Additional Instructions: PLEASE CALL YOUR PCP, GO TO THE NEAREST EMERGENCY ROOM OR CALL 9-1-1, IF YOU FEEL DIZZY, SHORT OF BREATH, UNWELL, IF SYMPTOMS RETURN OR WORSEN. PLEASE USE ICE PACKS ON YOUR LEFT ARM FRACTURE FOR PAIN AND SWELLING. PLEASE KEEP LEFT ARM IN SLING TO PROVIDE SUPPORT AND PREVENT FURTHER INJURY. - Diet and Activity Activity: return to work once cleared by your PCP/specialist Diet: low salt diet <Jasper Benites - Last Filed: 02/13/18 18:49> Orders not resulted at time of discharge: Pending orders 02/12/18 15:46 Urine tox screen [[facility], Urine] [facility] Routine Date of Encounter: 02/13/18 - Discharge Diagnosis (1) Syncope Status: Acute Qualifiers: Syncope type: unspecified Qualified Code(s): R55 - Syncope and collapse (2) Fracture of neck of humerus Status: Acute Qualifiers: Encounter type: initial encounter Fracture type: closed Laterality: left Qualified Code(s): S42.212A - Unspecified displaced fracture of surgical neck of left humerus, initial encounter for closed fracture (3) Tobacco abuse Status: Acute (4) COPD (chronic obstructive pulmonary disease) with emphysema Status: Acute Qualifiers: Emphysema type: unspecified Qualified Code(s): J43.9 - Emphysema, unspecified (5) CAD (coronary artery disease) Status: Acute Qualifiers: Coronary Disease-Associated Artery/Lesion type: [place] artery [place] vs. transplanted heart: [place] heart Associated angina: without angina Qualified Code(s): I25.10 - Atherosclerotic heart disease of [place] coronary artery without angina pectoris (6) Hypertension Status: Acute Qualifiers: Qualified Code(s): I10 - Essential (primary) hypertension Hospital course: Ms. Campos is a 72 year old female - Time Spent with Patient Total time spent providing and/or coordinating discharge services: Date of admission: 02/12/18 14:54 Primary care physician: Archana Saravia CNP Consults: 02/13/18 10:38 Consult to Datawarehouse Developer [CONS] Routine Reason for SW Consult: ASSESS DISCHARGE NEEDS 02/13/18 10:42 Consult to Occupational Therapy [CONS] Routine Comment: Evaluate, develop and implement POC Reason for Consult: LEFT HUMEROUS FRACTURE- ASSESS FOR SAFETY Does patient have active BEDREST order?: No Is patient medically & hemodynamically stable?: Yes Consult to Physical Therapy [CONS] Routine Comment: Evaluate, develop and implement POC Reason for Consult: LEFT HUMEROUS FRACTURE - ASSESS FOR SAFETY Does patient have active BEDREST order?: No Is patient medically & hemodynamically stable?: Yes - Constitutional Vitals: Temp Pulse Resp BP Pulse Ox 97.3 F L 113 16 134/62 92 02/13/18 12:00 02/13/18 12:00 02/13/18 12:00 02/13/18 12:00 02/13/18 12:00 - Attending Attestation I examined this patient and my medical decision-making was reviewed with the Resident. I agree with the documented findings, disposition and treatment plan as described except to the extent set forth below. Based on patient presentation, we highly recommend an echocardiogram to rule out valvular dysfunction. Also, based on her significant history of thrombocytosis, with syncope and shortness of breath episodes, I recommended to patient a CTA of chest to rule out PE. She refuses this and I did discuss with her risks of not having workup to rule out heart abnormalitites with echocardiogram and ruling out PE with CTA. This includes cardiac failure, respiratory failure, stroke, and . Patient acknowledges these risks but still would like to go.
== END 2018-02-13 13:05 | disposition left against medical advice (07) ==
LOC: EMEROOARM 11:32 → 3NENU 11:32
PROVIDERS: ADMIT Internal Medicine; ATTEND Internal Medicine

== ENCOUNTER 2018-09-22 09:05 | Inpatient (IN) ==
--- NOTE | 2018-09-22 09:11 | Emergency Department Note ---
Disposition Clinical Impression: Anemia due to GI blood loss, Melena Disposition: Admitted As Inpatient Condition: Fair General Adult HPI - General Stated complaint: , Vomiting blood Time Seen by Provider: 09/22/18 09:07 - Related Data Home Medications Medication Instructions Recorded Confirmed RX: Albuterol Sulfate [Albuterol 1 puff IH Q4-6H PRN 06/18/15 09/22/18 Inhaler] RX: Furosemide [Lasix] 40 mg PO DAILY 06/18/15 09/22/18 RX: Ipratropium [ATROVENT Inhaler] 2 puff IH BID 06/18/15 09/22/18 RX: Lansoprazole [Prevacid] 30 mg PO DAILY 06/18/15 09/22/18 RX: Lidocaine Patch [Lidoderm 5% 1 appl TP DAILY PRN 06/18/15 09/22/18 patch] RX: Metoprolol XL (24 HR) Succ 12.5 mg PO BID 12/24/15 09/22/18 [Toprol Xl] RX: Hydroxyurea [Hydrea] 500 mg PO Q48H 02/12/18 09/22/18 RX: Colesevelam HCl [Welchol] 625 mg PO TIDWM 02/13/18 09/22/18 Aspirin [Lo-Dose Aspirin EC] 81 mg PO DAILY 09/22/18 09/22/18 FLUoxetine HCl [Fluoxetine HCl] 40 mg PO DAILY 09/22/18 09/22/18 RX: ALPRAZolam [Xanax 1 MG Tablet] 1 mg PO TID PRN 09/22/18 09/22/18 Previous Rx's Medication Instructions Recorded RX: Cyanocobalamin (B-12) [Vitamin 1,000 mcg PO DAILY #90 tablet 07/24/17 B12] RX: Folic Acid 1 tab PO DAILY #90 tablet 07/24/17 Allergies Allergy/AdvReac Type Severity Reaction Status Date / Time prednisone Allergy Intermediate Hives Verified 09/22/18 15:47 gabapentin [From Neurontin] AdvReac Unknown Nausea Verified 09/22/18 15:47 ibuprofen AdvReac Unknown Hives Verified 09/22/18 15:47 naproxen [From Naprosyn] AdvReac Unknown Nausea Verified 09/22/18 15:47 Past Medical History - Past Medical History Medical history: Reports: arthritis, asthma, cancer, COPD, coronary artery disease, CVA, GERD, hyperlipidemia, myocardial infarction, osteoporosis, other Surgical history: Reports: appendectomy, cataract, cholecystectomy, hysterectomy, orthopedic, other Psychiatric history: Reports: depression MUSIC SUPERVISOR history: Reports: no MUSIC SUPERVISOR history - Social History Smoking Status: Light tobacco smoker Smokeless Tobacco Status: No Alcohol use: Reports: none Drug use: Reports: none Course Vital Signs Temperature 97.5 F L 09/22/18 09:12 Pulse Rate 93 09/22/18 09:12 Respiratory Rate 18 09/22/18 09:12 Blood Pressure 92/59 09/22/18 09:12 O2 Sat by Pulse Oximetry 100 09/22/18 09:12 Temperature 99.1 F 09/22/18 13:56 Pulse Rate 78 09/22/18 13:56 Respiratory Rate 15 09/22/18 13:56 Blood Pressure 101/59 09/22/18 13:56 O2 Sat by Pulse Oximetry 96 09/22/18 12:45 Oxygen Delivery Oxygen Delivery Nasal Cannula Medical Decision Making - Lab Data Result diagrams: 09/22/18 09:25 09/22/18 09:25 Lab Results 09/22/18 09/22/18 09/22/18 Range/Units 09:13 09:25 09:25 WBC 7.3 (4.3-11.1) K/mcL RBC 2.44 L (3.82-4.97) M/mcL Hgb 8.8 L (11.5-15.4) g/dL Hct 27.0 L (35.3-44.9) % MCV 110.7 H (83.0-100.0) fL MCH 36.1 H (28.0-33.3) pg MCHC 32.6 (31.6-35.5) g/dL RDW 14.1 (11.5-14.5) % Plt Count 613 H (140-400) K/mcL MPV 11.2 (9.4-12.4) fL Immature Gran % 0.7 (0-4) % Seg Neutrophils % 63.3 % Lymphocytes % 23.6 % Monocytes % 11.9 % Eosinophils % 0.4 % Basophils % 0.1 % Neutrophils # 4.6 (1.6-8.9) K/mcL Lymphocytes # 1.7 (0.6-4.6) K/mcL Monocytes # 0.9 (0.0-1.3) K/mcL Eosinophils # 0.0 (0.0-0.6) K/mcL Basophils # 0.0 (0.0-0.2) K/mcL Nucleated RBCs/100 WBC 0.6 H (0) /100 WBC Platelet Estimate Slight increase H (Normal) Anisocytosis 1+ A (Not Present) Macrocytosis Present A (Not Present) PT 14.0 H (9.4-12.1) Seconds INR 1.2 APTT 25.6 L (26.0-36.0) Seconds Sodium (136-145) mEq/L Potassium (3.5-5.1) mEq/L Chloride (98-107) mEq/L Carbon Dioxide (23-29) mEq/L BUN (8-23) mg/dL Creatinine (0.60-1.20) mg/dL Est GFR ( Amer) (> 60) Est GFR (Non-Af Amer) (> 60) BUN/Creatinine Ratio (6-26) Glucose (70-105) mg/dL Est Mean Plasma Glucose 108 mg/dl Hemoglobin A1c 5.4 ( - 5.6) % Calculated Osmolality (280-300) Lactic Acid (0.5-2.2) mmol/L Calcium (8.6-10.3) mg/dL Total Bilirubin (0.3-1.0) mg/dL Direct Bilirubin (0.0-0.2) mg/dL Indirect Bilirubin (0.0-1.2) mg/dL AST (13-39) Units/L ALT (7-52) Units/L Alkaline Phosphatase (34-104) Units/L Troponin I (< 0.04) ng/mL Serum Total Protein (6.4-8.9) g/dL Albumin (3.5-5.7) g/dL Globulin (2.4-3.5) g/dL Albumin/Globulin Ratio (1.1-2.2) Stool Occult Blood (Negative) Blood Type Antibody Screen Crossmatch 09/22/18 09/22/18 09/22/18 Range/Units 09:25 09:25 09:25 WBC (4.3-11.1) K/mcL RBC (3.82-4.97) M/mcL Hgb (11.5-15.4) g/dL Hct (35.3-44.9) % MCV (83.0-100.0) fL MCH (28.0-33.3) pg MCHC (31.6-35.5) g/dL RDW (11.5-14.5) % Plt Count (140-400) K/mcL MPV (9.4-12.4) fL Immature Gran % (0-4) % Seg Neutrophils % % Lymphocytes % % Monocytes % % Eosinophils % % Basophils % % Neutrophils # (1.6-8.9) K/mcL Lymphocytes # (0.6-4.6) K/mcL Monocytes # (0.0-1.3) K/mcL Eosinophils # (0.0-0.6) K/mcL Basophils # (0.0-0.2) K/mcL Nucleated RBCs/100 WBC (0) /100 WBC Platelet Estimate (Normal) Anisocytosis (Not Present) Macrocytosis (Not Present) PT (9.4-12.1) Seconds INR APTT (26.0-36.0) Seconds Sodium 140 (136-145) mEq/L Potassium 4.0 (3.5-5.1) mEq/L Chloride 105 (98-107) mEq/L Carbon Dioxide 27 (23-29) mEq/L BUN 40 H (8-23) mg/dL Creatinine 0.83 (0.60-1.20) mg/dL Est GFR ( Amer) > 60 (> 60) Est GFR (Non-Af Amer) > 60 (> 60) BUN/Creatinine Ratio 48 H (6-26) Glucose 150 H (70-105) mg/dL Est Mean Plasma Glucose mg/dl Hemoglobin A1c ( - 5.6) % Calculated Osmolality 303 H (280-300) Lactic Acid 3.3 H (0.5-2.2) mmol/L Calcium 8.4 L (8.6-10.3) mg/dL Total Bilirubin 0.6 (0.3-1.0) mg/dL Direct Bilirubin 0.1 (0.0-0.2) mg/dL Indirect Bilirubin 0.5 (0.0-1.2) mg/dL AST 17 (13-39) Units/L ALT 9 (7-52) Units/L Alkaline Phosphatase 68 (34-104) Units/L Troponin I < 0.03 (< 0.04) ng/mL Serum Total Protein 5.4 L (6.4-8.9) g/dL Albumin 2.9 L (3.5-5.7) g/dL Globulin 2.5 (2.4-3.5) g/dL Albumin/Globulin Ratio 1.2 (1.1-2.2) Stool Occult Blood (Negative) Blood Type A POSITIVE Antibody Screen NEGATIVE Crossmatch See Detail 09/22/18 Range/Units 09:26 WBC (4.3-11.1) K/mcL RBC (3.82-4.97) M/mcL Hgb (11.5-15.4) g/dL Hct (35.3-44.9) % MCV (83.0-100.0) fL MCH (28.0-33.3) pg MCHC (31.6-35.5) g/dL RDW (11.5-14.5) % Plt Count (140-400) K/mcL MPV (9.4-12.4) fL Immature Gran % (0-4) % Seg Neutrophils % % Lymphocytes % % Monocytes % % Eosinophils % % Basophils % % Neutrophils # (1.6-8.9) K/mcL Lymphocytes # (0.6-4.6) K/mcL Monocytes # (0.0-1.3) K/mcL Eosinophils # (0.0-0.6) K/mcL Basophils # (0.0-0.2) K/mcL Nucleated RBCs/100 WBC (0) /100 WBC Platelet Estimate (Normal) Anisocytosis (Not Present) Macrocytosis (Not Present) PT (9.4-12.1) Seconds INR APTT (26.0-36.0) Seconds Sodium (136-145) mEq/L Potassium (3.5-5.1) mEq/L Chloride (98-107) mEq/L Carbon Dioxide (23-29) mEq/L BUN (8-23) mg/dL Creatinine (0.60-1.20) mg/dL Est GFR ( Amer) (> 60) Est GFR (Non-Af Amer) (> 60) BUN/Creatinine Ratio (6-26) Glucose (70-105) mg/dL Est Mean Plasma Glucose mg/dl Hemoglobin A1c ( - 5.6) % Calculated Osmolality (280-300) Lactic Acid (0.5-2.2) mmol/L Calcium (8.6-10.3) mg/dL Total Bilirubin (0.3-1.0) mg/dL Direct Bilirubin (0.0-0.2) mg/dL Indirect Bilirubin (0.0-1.2) mg/dL AST (13-39) Units/L ALT (7-52) Units/L Alkaline Phosphatase (34-104) Units/L Troponin I (< 0.04) ng/mL Serum Total Protein (6.4-8.9) g/dL Albumin (3.5-5.7) g/dL Globulin (2.4-3.5) g/dL Albumin/Globulin Ratio (1.1-2.2) Stool Occult Blood Positive A (Negative) Blood Type Antibody Screen Crossmatch Attestation Statement - Attestation Attestation: I examined this patient and my medical decision-making was reviewed with the Resident Physician. I agree with the documented findings, disposition and treatment plan as described except to the extent set forth below. [id number] time provided Patient arrives by EMS from home complaining of dyspnea and hematemesis. EMS reports the patient's home was soiled with dog excrement and there was a "puddle" of mucous on the floor but no gross blood. She appears in mild acute distress upon arrival. She takes aspirin but no other blood thinners. I evaluated this patient in conjunction with the resident physician Dr. Moreno. I personally attest to supervising his interpretation of the ECG
[2018-09-22] MEDS ORDERED: 0.9 % Sodium Chloride 1,000 ML ONE (09:16)
[2018-09-22] MEDS ORDERED: Pantoprazole 40 MG VIAL IVP ONE (09:18)
[2018-09-22] MEDS ORDERED: Ondansetron 4 MG/2 ML VIAL IVP ONE (09:18)
[2018-09-22] MEDS: 0.9 % Sodium Chloride 1,000 ML IVC ONE ×2 (09:22→09:34)
--- NOTE | 2018-09-22 09:24 | Emergency Department Note ---
Addendum entered and electronically signed by Maynor Moreno DO 09/22/18 10:39: Lactate 3.3. Will give 2nd L of NS, if persistently hypotensive may concern transfusion. Original Note: Disposition Clinical Impression: Anemia due to GI blood loss, Melena Disposition: Admitted As Inpatient Condition: Fair Referrals: Archana Saravia, COPING MACHINE OPERATOR [Primary Care Provider] - Time of Disposition: 10:24 GI Bleed HPI - General Stated complaint: , Vomiting blood Time Seen by Provider: 09/22/18 09:07 Source: patient, EMS Mode of arrival: EMS Limitations: no limitations Nursing Notes Reviewed: Yes Vital Signs Reviewed: Yes - History of Present Illness HPI Narrative: 73-year-old female history of hyperlipidemia and COPD presents to the emergency department via EMS with her complaints of difficulty in breathing and vomiting blood. Reports last night having multiple episodes of hematemesis and bloody dark stool, reports half a dozen times. Patient has gradually been more short of breath. She takes a baby aspirin daily. Denies anticoagulants. Denies any chest pain. She is feeling short of breath. She has been using her inhalers as directed. EMS reports finding her next to a puddle of mucous. No blood was noted. She denies any recent illness fever or cough. Was evaluated by her pain specialist yesterday without issues at that time. No history of G.I. bleed. Denies history of liver disease. No injury or trauma noted. She reports abdominal cramping. Reports remote history of blood transfusion as a teenager. Denies chronic NSAID use. Patient is currently on a DuoNeb treatment and is helping her dyspnea. Pt Subjective Complaint: blood streaked emesis, melena - Related Data Home Medications Medication Instructions Recorded Confirmed Albuterol Sulfate [Albuterol 1 puff IH QID PRN 06/18/15 08/10/18 Inhaler] Fluticasone Propionate [Flovent 1 puff IH BID 06/18/15 08/10/18 Diskus] Furosemide [Lasix] 40 mg PO DAILY 06/18/15 08/10/18 Ipratropium [ATROVENT Inhaler] 2 puff IH QID 06/18/15 08/10/18 Lansoprazole [Prevacid] 30 mg PO DAILY 06/18/15 08/10/18 Lidocaine Patch [Lidoderm 5% patch] 1 appl TP DAILY PRN 06/18/15 08/10/18 Pravastatin Sodium [Pravachol] 80 mg PO DAILY 06/18/15 08/10/18 Aspirin [Adult Low Dose Aspirin EC] 81 mg PO DAILY 07/03/15 08/10/18 Albuterol Neb [Proventil Neb] 2.5 mg IH QID PRN 12/24/15 08/10/18 Metoprolol XL (24 HR) Succ [Toprol 12.5 mg PO DAILY 12/24/15 08/10/18 Xl] Hydroxyurea [Hydrea] 500 mg PO Q48H 02/12/18 08/10/18 Colesevelam HCl [Welchol] 625 mg PO TIDWM 02/13/18 08/10/18 Previous Rx's Medication Instructions Recorded Cyanocobalamin (B-12) [Vitamin B12] 1,000 mcg PO DAILY #90 tablet 07/24/17 Folic Acid 1 tab PO DAILY #90 tablet 07/24/17 FLUoxetine HCl [Prozac] 40 mg PO DAILY capsule 07/23/18 Allergies Allergy/AdvReac Type Severity Reaction Status Date / Time prednisone Allergy Intermediate Hives Verified 08/10/18 08:31 gabapentin [From Neurontin] AdvReac Unknown Nausea Verified 08/10/18 08:31 ibuprofen AdvReac Unknown Hives Verified 08/10/18 08:31 naproxen [From Naprosyn] AdvReac Unknown Nausea Verified 08/10/18 08:31 All systems ED: reviewed and negative except as stated. Review of Systems: As Per HPI Constitutional: Reports: weakness. Denies: fever, chills ENT ED: Denies: congestion Cardiovascular: Denies: chest pain, syncope Respiratory: Reports: dyspnea Gastrointestinal: Reports: nausea, hematemesis, melena, hematochezia. Denies: abdominal pain, vomiting Genitourinary: Denies: dysuria Musculoskeletal: Denies: back pain Integumentary: Denies: rash, abrasion Neurological: Reports: weakness. Denies: headache Past Medical History - Past Medical History Attestation: Yes The following information was validated with the patient. 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 AND AIR DELIVERY SPECIALIST history - Social History Smoking Status: Light tobacco smoker Smokeless Tobacco Status: No Alcohol use: Reports: none Drug use: Reports: none Physical Exam - General Limitations: no limitations General appearance: alert - Head Head exam: atraumatic, normocephalic, normal inspection - Eye Eye exam: Present: normal appearance, PERRL, EOMI, other (Pale conjunctiva) - ENT ENT exam: normal exam, normal oropharynx, mucous membranes dry - Neck Neck exam: Present: normal inspection, full ROM, trachea midline - Chest Chest inspection: Present: normal inspection, symmetric chest wall rise. Absent: tenderness - Respiratory Respiratory exam: Present: normal lung sounds bilaterally. Absent: respiratory distress, wheezes - Cardiovascular Cardiovascular exam: Present: regular rate, normal rhythm, normal heart sounds. Absent: systolic murmur, diastolic murmur - Expanded Cardiovascular Exam Peripheral pulses: 2+: radial (R), radial (L) - Abdominal Exam Abdominal exam: Present: soft, tenderness (Diffuse), normal bowel sounds. Absent: distention, guarding, rebound, rigidity Abdominal tenderness: Present: diffuse - Rectal Exam Tractor Driver Teamster present during exam: Yes (SUMMER Denise) Rectal exam: Present: normal inspection, heme (+) stool, black stool, bloody stool. Absent: hemorrhoids - Extremities Exam Extremities exam: Present: normal inspection, full ROM. Absent: tenderness, pedal edema - Neurological Exam Neurological exam: Present: alert - Psychiatric Psychiatric exam: Present: normal affect, normal mood - Skin Skin exam: Present: warm, dry, intact, pallor, other (dried blood around anus/buttocks and lower extremities) Course Course Narrative: Patient presents with concerns for G.I. bleed. No history of NSAID use or anticoagulation at this time. Patients mildly hypotensive systolic 92. She odalys l receive IV fluids and workup for potential G.I. bleed. Type and screen ordered. 40 mg IV Protonix. Patient will likely require admission. Her lungs are clear auscultation bilaterally however she is currently on the DuoNeb treatment. She reports a history of COPD but does not report exacerbation. - Reevaluation(s) Reevaluation #1: Hemoglobin 8.8. This is nearly a 2 point drop from her prior. Hemoccult is positive. She does appear to be a chronic anemic around 9 recently this year but normally around 11-12. BUN is 40. Chest x-ray without any pneumonia or pulmonary process. Suspect a bleeding ulcer as she is not actively bleeding or having hematemesis. Suspect the blood around anus is from yesterday as it is dried. She is otherwise hemodynamically stable. Last blood pressure 100/76. She does not required blood transfusion at this time. No indication for emergent scope at this time. Patient will be admitted for G.I. bleed anemia possible colonoscopy. She is agreeable to this plan. Time: 10:14 - Consultations Consultation #1: Spoke with on-call hospitalist irina Burleson to admit for GI bleed anemia and melena. No further orders at this time Time: 10:28 Vital Signs Temperature 97.5 F L 09/22/18 09:12 Pulse Rate 93 09/22/18 09:12 Respiratory Rate 18 09/22/18 09:12 Blood Pressure 92/59 09/22/18 09:12 O2 Sat by Pulse Oximetry 100 09/22/18 09:12 Temperature 97.5 F L 09/22/18 09:12 Pulse Rate 82 09/22/18 09:36 Respiratory Rate 12 09/22/18 09:36 Blood Pressure 103/55 09/22/18 09:36 O2 Sat by Pulse Oximetry 100 09/22/18 09:36 Oxygen Delivery Oxygen Delivery Nasal Cannula GI Bleed - MDM Narrative Medical decision making narrative: Patient was discussed with my attending physician who agrees with ED management and final disposition. They independently evaluated the patient. Please refer to their attestation to this encounter for additional information. This note was generated by [employer] voice recognition software and as a result grammatical or spelling errors may occur using this program. - Medical Records Medical records reviewed: Yes I reviewed the patient's medical records. - Lab Data Lab results reviewed: Yes I reviewed the patient's lab results. Result diagrams: 09/22/18 09:25 09/22/18 09:25 Lab Results 09/22/18 09/22/18 09/22/18 Range/Units 09:25 09:25 09:25 WBC 7.3 (4.3-11.1) K/mcL RBC 2.44 L (3.82-4.97) M/mcL Hgb 8.8 L (11.5-15.4) g/dL Hct 27.0 L (35.3-44.9) % MCV 110.7 H (83.0-100.0) fL MCH 36.1 H (28.0-33.3) pg MCHC 32.6 (31.6-35.5) g/dL RDW 14.1 (11.5-14.5) % Plt Count 613 H (140-400) K/mcL MPV 11.2 (9.4-12.4) fL Immature Gran % 0.7 (0-4) % Seg Neutrophils % 63.3 % Lymphocytes % 23.6 % Monocytes % 11.9 % Eosinophils % 0.4 % Basophils % 0.1 % Neutrophils # 4.6 (1.6-8.9) K/mcL Lymphocytes # 1.7 (0.6-4.6) K/mcL Monocytes # 0.9 (0.0-1.3) K/mcL Eosinophils # 0.0 (0.0-0.6) K/mcL Basophils # 0.0 (0.0-0.2) K/mcL Nucleated RBCs/100 WBC 0.6 H (0) /100 WBC Platelet Estimate Slight increase H (Normal) Anisocytosis 1+ A (Not Present) Macrocytosis Present A (Not Present) PT 14.0 H (9.4-12.1) Seconds INR 1.2 APTT 25.6 L (26.0-36.0) Seconds Sodium 140 (136-145) mEq/L Potassium 4.0 (3.5-5.1) mEq/L Chloride 105 (98-107) mEq/L Carbon Dioxide 27 (23-29) mEq/L BUN 40 H (8-23) mg/dL Creatinine 0.83 (0.60-1.20) mg/dL Est GFR ( Amer) > 60 (> 60) Est GFR (Non-Af Amer) > 60 (> 60) BUN/Creatinine Ratio 48 H (6-26) Glucose 150 H (70-105) mg/dL Calculated Osmolality 303 H (280-300) Lactic Acid (0.5-2.2) mmol/L Calcium 8.4 L (8.6-10.3) mg/dL Total Bilirubin 0.6 (0.3-1.0) mg/dL Direct Bilirubin 0.1 (0.0-0.2) mg/dL Indirect Bilirubin 0.5 (0.0-1.2) mg/dL AST 17 (13-39) Units/L ALT 9 (7-52) Units/L Alkaline Phosphatase 68 (34-104) Units/L Troponin I < 0.03 (< 0.04) ng/mL Serum Total Protein 5.4 L (6.4-8.9) g/dL Albumin 2.9 L (3.5-5.7) g/dL Globulin 2.5 (2.4-3.5) g/dL Albumin/Globulin Ratio 1.2 (1.1-2.2) Stool Occult Blood (Negative) Blood Type 09/22/18 09/22/18 09/22/18 Range/Units 09:25 09:25 09:26 WBC (4.3-11.1) K/mcL RBC (3.82-4.97) M/mcL Hgb (11.5-15.4) g/dL Hct (35.3-44.9) % MCV (83.0-100.0) fL MCH (28.0-33.3) pg MCHC (31.6-35.5) g/dL RDW (11.5-14.5) % Plt Count (140-400) K/mcL MPV (9.4-12.4) fL Immature Gran % (0-4) % Seg Neutrophils % % Lymphocytes % % Monocytes % % Eosinophils % % Basophils % % Neutrophils # (1.6-8.9) K/mcL Lymphocytes # (0.6-4.6) K/mcL Monocytes # (0.0-1.3) K/mcL Eosinophils # (0.0-0.6) K/mcL Basophils # (0.0-0.2) K/mcL Nucleated RBCs/100 WBC (0) /100 WBC Platelet Estimate (Normal) Anisocytosis (Not Present) Macrocytosis (Not Present) PT (9.4-12.1) Seconds INR APTT (26.0-36.0) Seconds Sodium (136-145) mEq/L Potassium (3.5-5.1) mEq/L Chloride (98-107) mEq/L Carbon Dioxide (23-29) mEq/L BUN (8-23) mg/dL Creatinine (0.60-1.20) mg/dL Est GFR ( Amer) (> 60) Est GFR (Non-Af Amer) (> 60) BUN/Creatinine Ratio (6-26) Glucose (70-105) mg/dL Calculated Osmolality (280-300) Lactic Acid 3.3 H (0.5-2.2) mmol/L Calcium (8.6-10.3) mg/dL Total Bilirubin (0.3-1.0) mg/dL Direct Bilirubin (0.0-0.2) mg/dL Indirect Bilirubin (0.0-1.2) mg/dL AST (13-39) Units/L ALT (7-52) Units/L Alkaline Phosphatase (34-104) Units/L Troponin I (< 0.04) ng/mL Serum Total Protein (6.4-8.9) g/dL Albumin (3.5-5.7) g/dL Globulin (2.4-3.5) g/dL Albumin/Globulin Ratio (1.1-2.2) Stool Occult Blood Positive A (Negative) Blood Type A POSITIVE - Radiology Data Radiology results reviewed: Yes I reviewed the patient's radiology results. Chest X-Ray 09/22/18 09:12 IMPRESSION: 1. Minimal atelectasis/scarring noted in the left mid lung field, improved. 2. Otherwise no acute cardiopulmonary disease. D/ / 09/22/2018 09:48:44 Tima Rodriguez MD / jak Interpreting Provider: Tima Rodriguez MD - EKG Data EKG attestation: Yes I reviewed and interpreted this EKG. EKG results narrative: EKG performed 914 normal sinus rhythm, normal axis, early R wave progression, no ST elevation or depression, no T-wave inversions. Compared to prior EKG performed 07/21/2017 normal sinus rhythm 70 beats per minute with T-wave inversions in the septal leads that have resolved. No acute ischemic changes.
[2018-09-22 09:42] LABS: Basophils % 0.1 %; Eosinophils % 0.4 %; Hemoglobin 8.8 g/dL (11.5-15.4); Immature Granulocytes % 0.7 % (0-4); Lymphocytes # 1.7 K/mcL (0.6-4.6); Lymphocytes % 23.6 %; Mean Corpuscular HGB Conc 32.6 g/dL (31.6-35.5); Mean Corpuscular Hemoglobin 36.1 pg (28.0-33.3); Mean Corpuscular Volume 110.7 fL (83.0-100.0); Mean Platelet Volume 11.2 fL (9.4-12.4); Monocytes # 0.9 K/mcL (0.0-1.3); Monocytes % 11.9 %; Neutrophils # 4.6 K/mcL (1.6-8.9); Nucleated Red Blood Cells 0.6 /100 WBC (0); Platelet Count 613 K/mcL (140-400); Red Blood Count 2.44 M/mcL (3.82-4.97); Red Cell Distribution Width 14.1 % (11.5-14.5); Segmented Neutrophils % 63.3 %
[2018-09-22 09:43] LABS: Anisocytosis 1+ (Not Present); Macrocytosis Present (Not Present)
[2018-09-22 09:49] LABS: INR 1.2
[2018-09-22 09:52] LABS: Activated Partial Thrombo Time 25.6 Seconds (26.0-36.0)
[2018-09-22 10:01] LABS: Alanine Aminotransferase 9 Units/L (7-52); Albumin 2.9 g/dL (3.5-5.7); Albumin/Globulin Ratio 1.2 (1.1-2.2); Alkaline Phosphatase 68 Units/L (34-104); Aspartate Amino Transferase 17 Units/L (13-39); BUN/Creatinine Ratio 48 (6-26); Bilirubin,Direct 0.1 mg/dL (0.0-0.2); Bilirubin,Indirect 0.5 mg/dL (0.0-1.2); Bilirubin,Total 0.6 mg/dL (0.3-1.0); Blood Urea Nitrogen 40 mg/dL (8-23); Calcium 8.4 mg/dL (8.6-10.3); Carbon Dioxide 27 mEq/L (23-29); Chloride 105 mEq/L (98-107); Globulin 2.5 g/dL (2.4-3.5); Glucose 150 mg/dL (70-105); Osmolality,Calculated 303 (280-300); Sodium 140 mEq/L (136-145); Total Protein 5.4 g/dL (6.4-8.9); Troponin I < 0.03 ng/mL (< 0.04); eGFR For Non-African Americans > 60 (> 60)
[2018-09-22] MEDS ORDERED: 0.9 % Sodium Chloride 1,000 ML IVC ONE (10:11)
[2018-09-22] MEDS ORDERED: traMADol 50 MG TABLET PO PRN (10:33)
[2018-09-22] MEDS ORDERED: Naloxone 0.4 MG/ML INJ IVP PRN (10:33)
[2018-09-22] MEDS ORDERED: *HR* Dextrose 50 % in Water (Syg) 50 ML SYRINGE IVP PRN (10:36)
[2018-09-22] MEDS ORDERED: Dextrose Gel 15 GM/37.5 ML TUBE PO PRN ×2 (10:36)
[2018-09-22] MEDS ORDERED: D5% in Water 1,000 ML IVC PRN (10:36)
[2018-09-22] MEDS ORDERED: Ondansetron 4 MG/2 ML VIAL IVP PRN (10:37)
[2018-09-22] MEDS ORDERED: Ipratropium/Albuterol Neb 3 ML IH PRN (10:39)
[2018-09-22] MEDS ORDERED: Isovue-370 500 ML BOTTLE IVP ONE (11:34)
--- NOTE | 2018-09-22 11:39 | Internal Med History&Physical ---
Date of Encounter: 09/22/18 Time of Encounter: 11:35 Internal Medicine - H&P: HPI Chief complaint: vomiting blood Plans for Post Hospital Care: Home History of present illness: Ms. Campos is a 73 year old female PMH of [place] on aspirin, COPD and HNT. Patient presented to the ED due to vomiting blood. Patient reports last night at around 11pm she started throwing up blood, which she describes as bright red and dark. Reports she threw up at least 6 times, reports nausea but denies retching. Started that she filled 1/2 a mop basket of blood. Denies abdominal pain but reports having dark stool, reports she had 6-8 BM of dark stool yesterday. Denies chest pain but reports feeling short of breath and light headed. Denies similar GI bleeding episodes. Past Med Surg Social Fam HX - Past Medical History Medical history: arthritis, asthma, cancer, COPD, coronary artery disease, CVA, GERD, hyperlipidemia, myocardial infarction, osteoporosis, other Additional medical history: IBS Psychiatric history: depression - Past Surgical History Surgical History: appendectomy, cataract, cholecystectomy, hysterectomy, orthopedic, other Additional surgical history: left knee, left shoulder, right shoulder, nicolasa hips, nicolasa feet - Social History Smoking Status: Light tobacco smoker Smokeless Tobacco Status: No Alcohol use: none Drug use: none - Family History Father Living Status: Hx Family Cardiac Disorders: Yes (Heart disease) Mother Living Status: Hx Family Cancer: Yes (throat) Sister Living Status: Hx Family Cancer: Yes (throat) Internal Medicine - H&P: Meds Albuterol Sulfate [Albuterol Inhaler] 1 puff IH QID PRN 06/18/15 [History] Fluticasone Propionate [Flovent Diskus] 1 puff IH BID 06/18/15 [History] Furosemide [Lasix] 40 mg PO DAILY 06/18/15 [History] Ipratropium [ATROVENT Inhaler] 2 puff IH QID 06/18/15 [History] Lansoprazole [Prevacid] 30 mg PO DAILY 06/18/15 [History] Lidocaine Patch [Lidoderm 5% patch] 1 appl TP DAILY PRN 06/18/15 [History] Pravastatin Sodium [Pravachol] 80 mg PO DAILY 06/18/15 [History] Aspirin [Adult Low Dose Aspirin EC] 81 mg PO DAILY 07/03/15 [History] Albuterol Neb [Proventil Neb] 2.5 mg IH QID PRN 12/24/15 [History] Metoprolol XL (24 HR) Succ [Toprol Xl] 12.5 mg PO DAILY 12/24/15 [History] Cyanocobalamin (B-12) [Vitamin B12] 1,000 mcg PO DAILY #90 tablet 07/24/17 [Rx] Folic Acid 1 tab PO DAILY #90 tablet 07/24/17 [Rx] Hydroxyurea [Hydrea] 500 mg PO Q48H 02/12/18 [History] Colesevelam HCl [Welchol] 625 mg PO TIDWM 02/13/18 [History] FLUoxetine HCl [Prozac] 40 mg PO DAILY capsule 07/23/18 [Rx] Allergy/AdvReac Type Severity Reaction Status Date / Time prednisone Allergy Intermediate Hives Verified 08/10/18 08:31 gabapentin [From Neurontin] AdvReac Unknown Nausea Verified 08/10/18 08:31 ibuprofen AdvReac Unknown Hives Verified 08/10/18 08:31 naproxen [From Naprosyn] AdvReac Unknown Nausea Verified 08/10/18 08:31 All Systems PM: A 10-system review of systems was performed and is negative for pertinent findings except as documented above in the HPI. - Constitutional Constitutional: no chills, no fever(s), no weakness - EENT Eyes: no floaters, no irritation Nose, mouth and throat: no sinus pain, no sore throat - Cardiovascular Cardiovascular ROS IM: dyspnea, lightheadedness, no chest pain, no diaphoresis, no dyspnea on exertion, no irregular heart rhythm, no palpitations, no paroxysmal nocturnal dyspnea - Respiratory Respiratory: no cough, no hemoptysis, no wheezing, no snoring, no excessive phlegm production, no change in phlegm color - Gastrointestinal Gastrointestinal: hematemesis, hematochezia, melena, nausea, vomiting, no abdo catherine pain - Genitourinary Genitourinary: no dysuria, no hematuria - Musculoskeletal Musculoskeletal ROS IM: no atrophy, no muscle cramps - Integumentary Integumentary IM: no erythema - Neurological Neurological ROS: no headache(s), no loss of vision - Psychiatric Psychiatric: no anxiety, no hopelessness, no irritability - Endocrine Endocrine IM: no cold intolerance, no flushing - Allergic/Immunologic Allergic/Immunologic: no tongue swelling, no wheezing - Constitutional Vitals: Temp Pulse Resp BP Pulse Ox 97.5 F L 83 14 103/69 95 09/22/18 09:12 09/22/18 10:50 09/22/18 10:50 09/22/18 10:50 09/22/18 10:50 Exam: Vitals: Reviewed General: Alert and oriented x4. In mild distress due to generalized weakness. Skin: Normal color, no rash, no lesions. HEENT: EOM, pupils equal, round and reactive. Cardiovascular: Irregularly irregular, normal S1 & S2, no rubs, murmurs or gallops. Lungs: CTA b/l, no wheezes or crackles. Abdomen: Soft, non-tender, no rigidity. Extremities: No deformity, no edema or tenderness, no joint swelling or clubbing. Neurological: Normal cognition and motor skills. Rest of the physical exam is non contributory Internal Med - H&P Results - Labs CBC & Chem 7: 09/22/18 09:25 09/22/18 09:25 Labs: Short CBC 09/22/18 Range/Units 09:25 WBC 7.3 (4.3-11.1) K/mcL Hgb 8.8 L (11.5-15.4) g/dL Hct 27.0 L (35.3-44.9) % Plt Count 613 H (140-400) K/mcL Neutrophils # 4.6 (1.6-8.9) K/mcL BMP 09/22/18 09:25 Sodium 140 Potassium 4.0 Chloride 105 Carbon Dioxide 27 BUN 40 H Creatinine 0.83 Glucose 150 H Calcium 8.4 L Cardiac Enzymes 09/22/18 Range/Units 09:25 Troponin I < 0.03 (< 0.04) ng/mL Liver Function 09/22/18 Range/Units 09:25 Total Bilirubin 0.6 (0.3-1.0) mg/dL Direct Bilirubin 0.1 (0.0-0.2) mg/dL AST 17 (13-39) Units/L ALT 9 (7-52) Units/L Alkaline Phosphatase 68 (34-104) Units/L Albumin 2.9 L (3.5-5.7) g/dL - Impressions ITS Impressions Chest X-Ray 09/22/18 09:12 IMPRESSION: 1. Minimal atelectasis/scarring noted in the left mid lung field, improved. 2. Otherwise no acute cardiopulmonary disease. D/ / 09/22/2018 09:48:44 Tima Rodriguez MD / jak Interpreting Provider: Tima Rodriguez MD - Diagnostic Studies Chest x-ray Status: image reviewed by me (No acute findings) - Assessment and Plan (1) GI bleed Current Visit: Yes Status: Acute Assessment and plan: likely Upper GI bleeding. patient on aspirin. Plan: NPO Accu-checks Q6HRs plus lispro sliding scale started on Pantoprazole 40mg/IV BID D5/0.9NS @100 mls/hr Ondanzetron 4mg/IV Q6HR PRN for nausea surgery consulted recommendations appreciated. PT/INR Serial CBC Q8HRs Type screen and crossmatch Will transfuse 1 unit of PRBCs, patient hypotensive NG lavage ordered Qualifiers: GI bleed type/associated pathology: unspecified gastrointestinal hemorrhage type Qualified Code(s): K92.2 - Gastrointestinal hemorrhage, unspecified (2) Hypotension Current Visit: Yes Status: Acute Assessment and plan: possible due to GI Bleeding plan of care as above Qualifiers: Hypotension type: unspecified hypotension type Qualified Code(s): I95.9 - Hypotension, unspecified (3) Thrombocytosis Current Visit: Yes Status: Chronic (4) Anemia due to GI blood loss Current Visit: Yes Status: Acute Assessment and plan: plan of care as per problem #1 (5) CAD (coronary artery disease) Current Visit: No Status: Chronic Assessment and plan: patient on aspirin. Will hold aspirin due to GI bleeding Qualifiers: Coronary Disease-Associated Artery/Lesion type: [place] artery [place] vs. transplanted heart: [place] heart Associated angina: without angina Qualified Code(s): I25.10 - Atherosclerotic heart disease of [place] coronary artery w ithout angina pectoris (6) COPD (chronic obstructive pulmonary disease) with emphysema Current Visit: No Status: Chronic Assessment and plan: patient with no acute exacerbation. Bronchodilators Q4RT PRN. Qualifiers: Emphysema type: unspecified Qualified Code(s): J43.9 - Emphysema, unspecified (7) Compression fracture of L4 vertebra Current Visit: No Status: Chronic Assessment and plan: started on tramadol for pain control Qualifiers: Encounter type: initial encounter Fracture type: closed Qualified Code(s): S32.040A - [place] compression fracture of fourth lumbar vertebra, initial encounter for closed fracture (8) DVT prophylaxis Current Visit: No Status: Chronic Assessment and plan: no chemical DVT prophylaxis due to GI bleed. mechanical DVT prophylaxis with intermittent pneumatic compression. (9) Hypertension Current Visit: No Status: Chronic Assessment and plan: patient presenting withh hypotension due to GI bleeding. plan of care as per problem #1. Qualifiers: Hypertension type: essential hypertension Qualified Code(s): I10 - Essential (primary) hypertension - Time Spent With Patient Total time spent is greater than 50% in coordination of care (as documented) at patient's floor/unit and/or counseling patient: Greater than 35 minutes (45)
--- NOTE | 2018-09-22 12:29 | AcuteCare Surgery Consult Note ---
<Aubrie Moses - Last Filed: 09/22/18 15:37> Date of Encounter: 09/22/18 Time of Encounter: 12:17 Assessment and Plan (1) GI bleed Current Visit: Yes Status: Acute This is a 73-year-old female with past medical history significant for hyp ertension, COPD, history of CAD status post MA who presents to the ED with dyspnea and hematemesis. Associated with multiple episodes of vomiting of bright red blood starting last night, and multiple episodes of watery, loose stools with dark red blood for the past 1-2 days. - Currently on aspirin 81 mg, but no other anticoagulation - Initially slightly hypotensive on presentation = 92/59; given IV fluids and 40 mg of IV Protonix. Blood pressure responded to fluids - Fecal occult blood test positive on exam, with dried red blood surrounding rectum - Initial hemoglobin = 8.8, and lactic acid = 3.3 - Otherwise patient has been hemodynamically stable. PLAN: Given that patient has remained hemodynamically stable, is only experiencing mild abdominal tenderness to palpation, she is not vomiting anymore, and is not in acute discomfort with normal vitals, patient likely has resolved or resolving upper GI bleed. We will proceed with endoscopy tomorrow morning. Otherwise we will recommend fluid hydration, replacement of blood products, and bowel rest - Continue with transfusion of 1 unit PRBCs; transfuse if Hb<7, or if patient has Hb<8 with altered mental status and hemodynamic instability - Continue with IV fluid hydration - Keep patient nothing by mouth - IV Protonix twice a day - IV pain and nausea control - We will plan on doing an endoscopy tomorrow morning; unnecessary to do NG lavage at this time - Monitor for signs or hemodynamic instability - Recheck Hb/Hct q12h - Hold aspirin for now Qualifiers: GI bleed type/associated pathology: unspecified gastrointestinal hemorrhage type Qualified Code(s): K92.2 - Gastrointestinal hemorrhage, unspecified (2) Hematemesis Current Visit: Yes Status: Acute Plan as above Qualifiers: Nausea presence: without nausea Qualified Code(s): K92.0 - Hematemesis History of Present Illness Consult date: 09/22/18 Reason for consult: other (GI bleed) Requesting physician: Harshad Da Silva History of present illness: This is a 73-year-old female with extensive past medical history including hypertension, COPD, history of CAD status post MA without stenting and currently only managed with aspirin, who initially presents today [facility] ED with dyspnea on exertion and hematemesis. Patient states that as of last night around 11 PM, she began vomiting blood. She states she has vomited at least 6 times, maybe more, and she is filled 'about half of a mop bucket full of bright red blood.' She also notes multiple episodes of watery, loose stool with evidence of dark blood that she has noticed over the past few days. Associated symptoms include shortness of breath, fatigue, lethargy. However she denies any abdominal pain, chest pain, headache. States that she does have a history of coronary artery disease and history of MA without stenting. However she only takes aspirin 81 mg, no other anticoagulation. Additionally patient notes that, she does not drink alcohol, has not had any liver problems in the past, has never had GI bleeding similar to this one, and does not do drugs. She does smoke cigarettes. She denies any recent injury or trauma. Patient does have history of C4 compression fracture for which she is following with pain management. Patient does state she occasionally takes Percocet for pain, but it is not helped of recent. Past surgical history does include cholecystectomy, appendectomy, hysterectomy. Patient does have history of previous EGD and colonoscopy, but she states was many years ago. Initially in the ED, patient presented with hemodynamically stable vitals. Blood pressure was initially soft = 92/59. Patient was given IV fluids and additional dose of 40 mg IV Protonix. Fecal occult blood test was positive. On rectal exam, there was evidence of dried blood. Also evidence of black, tarry stool. Initial hemoglobin = 8.8. Patient was admitted to hospitalist service. She will be transfused 1 unit of packed red blood cells. Surgery was consulted further evaluation of GI bleed. Past Med Surg Social Fam HX - Past Medical History Attestation: Yes The following information was validated with the patient. Source: patient, old records reviewed Medical history: arthritis, asthma, cancer, COPD, coronary artery disease, CVA, GERD, hyperlipidemia, myocardial infarction, osteoporosis, other Additional medical history: IBS Psychiatric history: depression - Past Surgical History Surgical History: appendectomy, cataract, cholecystectomy, hysterectomy, orth opedic, other Additional surgical history: left knee, left shoulder, right shoulder, nicolasa hips, nicolasa feet - Social History Smoking Status: Light tobacco smoker Smokeless Tobacco Status: No Alcohol use: none Drug use: none - Family History Father Living Status: Hx Family Cardiac Disorders: Yes (Heart disease) Mother Living Status: Hx Family Cancer: Yes (throat) Sister Living Status: Hx Family Cancer: Yes (throat) Medications and Allergies Albuterol Sulfate [Albuterol Inhaler] 1 puff IH Q4-6H PRN 06/18/15 [History] Furosemide [Lasix] 40 mg PO DAILY 06/18/15 [History] Ipratropium [ATROVENT Inhaler] 2 puff IH BID 06/18/15 [History] Lansoprazole [Prevacid] 30 mg PO DAILY 06/18/15 [History] Lidocaine Patch [Lidoderm 5% patch] 1 appl TP DAILY PRN 06/18/15 [History] Metoprolol XL (24 HR) Succ [Toprol Xl] 12.5 mg PO BID 12/24/15 [History] Cyanocobalamin (B-12) [Vitamin B12] 1,000 mcg PO DAILY #90 tablet 07/24/17 [Rx] Folic Acid 1 tab PO DAILY #90 tablet 07/24/17 [Rx] Hydroxyurea [Hydrea] 500 mg PO Q48H 02/12/18 [History] Colesevelam HCl [Welchol] 625 mg PO TIDWM 02/13/18 [History] ALPRAZolam [Xanax 1 MG Tablet] 1 mg PO TID PRN 09/22/18 [History] Aspirin [Lo-Dose Aspirin EC] 81 mg PO DAILY 09/22/18 [History] FLUoxetine HCl [Fluoxetine HCl] 40 mg PO DAILY 09/22/18 [History] Allergy/AdvReac Type Severity Reaction Status Date / Time prednisone Allergy Intermediate Hives Verified 09/22/18 15:47 gabapentin [From Neurontin] AdvReac Unknown Nausea Verified 09/22/18 15:47 ibuprofen AdvReac Unknown Hives Verified 09/22/18 15:47 naproxen [From Naprosyn] AdvReac Unknown Nausea Verified 09/22/18 15:47 Review of Systems All systems PM: reviewed and no additional remarkable complaints except as stated All systems PM: The remainder of the systems were reviewed and are negative - Constitutional chills, fatigue, lethargy, malaise, weakness, no anorexia, no fever(s), no headache(s) - EENT Nose, mouth and throat: no dizziness, no epistaxis, no headache(s) - Cardiovascular dyspnea, dyspnea on exertion, no chest pain, no chest pain at rest, no chest pain with activity, no edema, no irregular heart rhythm, no radiating jaw, neck or arm pain, no lightheadedness, no palpitations, no syncope - Respiratory dyspnea, no cough, no hemoptysis, no wheezing - Gastrointestinal change in stool character, diarrhea, hematemesis, hematochezia, loose stools, melena, vomiting, no abdominal pain, no bloating, no constipation, no cramping, no nausea - Genitourinary Genitourinary: no dysuria - Musculoskeletal back pain - Integumentary no rash - Neurological no confusion, no dizziness, no headache(s) - Endocrine cold intolerance, fatigue General Surgery Exam Initial Vital Signs Temp Pulse Resp BP Pulse Ox 97.5 F L 93 18 92/59 100 09/22/18 09:12 09/22/18 09:12 09/22/18 09:12 09/22/18 09:12 09/22/18 09:12 - General physical appearance no distress, no pain, other (Elderly, frail woman appears tired resting in bed) - Eyes other (Pale conjunctiva bilaterally), normal ocular movement, pale. negative: icteric - ENT normal nares, normal mucosa, no hearing loss, atraumatic, normocephalic - Neck no masses, trachea midline, no venous distension, other (No anterior cervical lymphadenopathy) - Respiratory normal expansion (Clear to auscultation bilaterally; no wheezing, rales, rhonchi, crackles), normal respiratory effort, clear to auscultation - Cardiovascular Cardiovascular exam: Present: RRR, regular rhythm, murmurs (2/6 systolic murmur best heard in the right parasternal second intercostal space) - Expanded Cardiovascular Exam Peripheral pulses: 2+: Radial (L), Radial (R) - Abdomen Abdomen general surgery: Present: bowel sounds present, soft, tender (Mild diffuse tenderness to palpation) - Integumentary Integumentary general surgery: Present: warm and dry, no abnormal pigmentation - Psychiatric Psychiatric general surgery: Present: A&Ox3, appropriate, oriented to person, oriented to place, oriented to time, speech is normal, memory intact Exam Initial Vital Signs Temp Pulse Resp BP Pulse Ox 97.5 F L 93 18 92/59 100 09/22/18 09:12 09/22/18 09:12 09/22/18 09:12 09/22/18 09:12 09/22/18 09:12 Results - Labs 09/22/18 09:25 09/22/18 09:25 Abnormal lab results RBC 2.44 M/mcL (3.82-4.97) L 09/22/18 09:25 Hgb 8.8 g/dL (11.5-15.4) L 09/22/18 09:25 Hct 27.0 % (35.3-44.9) L 09/22/18 09:25 MCV 110.7 fL (83.0-100.0) H 09/22/18 09:25 MCH 36.1 pg (28.0-33.3) H 09/22/18 09:25 Plt Count 613 K/mcL (140-400) H 09/22/18 09:25 Nucleated RBCs/100 WBC 0.6 /100 WBC (0) H 09/22/18 09:25 Platelet Estimate Slight increase (Normal) H 09/22/18 09:25 Anisocytosis 1+ (Not Present) A 09/22/18 09:25 Macrocytosis Present (Not Present) A 09/22/18 09:25 PT 14.0 Seconds (9.4-12.1) H 09/22/18 09:25 APTT 25.6 Seconds (26.0-36.0) L 09/22/18 09:25 BUN 40 mg/dL (8-23) H 09/22/18 09:25 BUN/Creatinine Ratio 48 (6-26) H 09/22/18 09:25 Glucose 150 mg/dL (70-105) H 09/22/18 09:25 Calculated Osmolality 303 (280-300) H 09/22/18 09:25 Lactic Acid 3.3 mmol/L (0.5-2.2) H 09/22/18 09:25 Calcium 8.4 mg/dL (8.6-10.3) L 09/22/18 09:25 Serum Total Protein 5.4 g/dL (6.4-8.9) L 04/20/19 09:25 Albumin 2.9 g/dL (3.5-5.7) L 09/22/18 09:25 Stool Occult Blood Positive (Negative) A 09/22/18 09:26 Diabetes panel 09/22/18 Range/Units 09:25 Sodium 140 (136-145) mEq/L Potassium 4.0 (3.5-5.1) mEq/L Chloride 105 (98-107) mEq/L Carbon Dioxide 27 (23-29) mEq/L BUN 40 H (8-23) mg/dL Creatinine 0.83 (0.60-1.20) mg/dL Glucose 150 H (70-105) mg/dL Calcium 8.4 L (8.6-10.3) mg/dL AST 17 (13-39) Units/L ALT 9 (7-52) Units/L Alkaline Phosphatase 68 (34-104) Units/L Albumin 2.9 L (3.5-5.7) g/dL Calcium panel 09/22/18 Range/Units 09:25 Calcium 8.4 L (8.6-10.3) mg/dL Albumin 2.9 L (3.5-5.7) g/dL Pituitary panel 09/22/18 Range/Units 09:25 Sodium 140 (136-145) mEq/L Potassium 4.0 (3.5-5.1) mEq/L Chloride 105 (98-107) mEq/L Carbon Dioxide 27 (23-29) mEq/L BUN 40 H (8-23) mg/dL Creatinine 0.83 (0.60-1.20) mg/dL Glucose 150 H (70-105) mg/dL Calcium 8.4 L (8.6-10.3) mg/dL Adrenal panel 09/22/18 Range/Units 09:25 Sodium 140 (136-145) mEq/L Potassium 4.0 (3.5-5.1) mEq/L Chloride 105 (98-107) mEq/L Carbon Dioxide 27 (23-29) mEq/L BUN 40 H (8-23) mg/dL Creatinine 0.83 (0.60-1.20) mg/dL Glucose 150 H (70-105) mg/dL Calcium 8.4 L (8.6-10.3) mg/dL Total Bilirubin 0.6 (0.3-1.0) mg/dL AST 17 (13-39) Units/L ALT 9 (7-52) Units/L Alkaline Phosphatase 68 (34-104) Units/L Albumin 2.9 L (3.5-5.7) g/dL All other labs normal. - Imaging Chest x-ray: report reviewed Consult Discharge Plan - Plan Referrals: Archana Saravia, [facility] ADMINISTRATOR [Primary Care Provider] - <Bj Escamilla - Last Filed: 09/23/18 12:24> Date of Encounter: 09/22/18 Review of Systems All systems PM: The remainder of the systems were reviewed and are negative General Surgery Exam Initial Vital Signs Temp Pulse Resp BP Pulse Ox 97.5 F L 93 18 92/59 100 09/22/18 09:12 09/22/18 09:12 09/22/18 09:12 09/22/18 09:12 09/22/18 09:12 Exam Initial Vital Signs Temp Pulse Resp BP Pulse Ox 97.5 F L 93 18 92/59 100 09/22/18 09:12 09/22/18 09:12 09/22/18 09:12 09/22/18 09:12 09/22/18 09:12 Results - Labs 09/23/18 11:48 09/23/18 01:31 Abnormal lab results RBC 2.43 M/mcL (3.82-4.97) L 09/23/18 01:31 Hgb 7.9 g/dL (11.5-15.4) L 09/23/18 11:48 Hct 24.4 % (35.3-44.9) L 09/23/18 11:48 MCV 102.5 fL (83.0-100.0) H 09/23/18 01:31 MCH 34.2 pg (28.0-33.3) H 09/23/18 01:31 RDW 18.6 % (11.5-14.5) H 09/23/18 01:31 Plt Count 441 K/mcL (140-400) H 09/23/18 01:31 Nucleated RBCs/100 WBC 0.6 /100 WBC (0) H 09/22/18 09:25 Platelet Estimate Slight increase (Normal) H 09/22/18 09:25 Anisocytosis 1+ (Not Present) A 09/22/18 09:25 Macrocytosis Present (Not Present) A 09/22/18 09:25 PT 14.0 Seconds (9.4-12.1) H 09/22/18 09:25 APTT 25.6 Seconds (26.0-36.0) L 09/22/18 09:25 Chloride 113 mEq/L (98-107) H 09/23/18 01:31 BUN 27 mg/dL (8-23) H 09/23/18 01:31 BUN/Creatinine Ratio 42 (6-26) H 09/23/18 01:31 Glucose 124 mg/dL (70-105) H 09/23/18 01:31 POC Glucose 120 mg/dL (70-99) H 09/23/18 05:48 Calculated Osmolality 303 (280-300) H 09/23/18 01:31 Calcium 7.8 mg/dL (8.6-10.3) L 09/23/18 01:31 Serum Total Protein 5.4 g/dL (6.4-8.9) L 09/22/18 09:25 Albumin 2.9 g/dL (3.5-5.7) L 09/22/18 09:25 Stool Occult Blood Positive (Negative) A 09/22/18 09:26 Diabetes panel 09/22/18 09/23/18 Range/Units 09:13 01:31 Sodium 143 (136-145) mEq/L Potassium 3.7 (3.5-5.1) mEq/L Chloride 113 H (98-107) mEq/L Carbon Dioxide 26 (23-29) mEq/L BUN 27 H (8-23) mg/dL Creatinine 0.65 (0.60-1.20) mg/dL Glucose 124 H (70-105) mg/dL Hemoglobin A1c 5.4 ( - 5.6) % Calcium 7.8 L (8.6-10.3) mg/dL Calcium panel 09/23/18 Range/Units 01:31 Calcium 7.8 L (8.6-10.3) mg/dL Phosphorus 3.3 (2.7-4.5) mg/dL Pituitary panel 09/23/18 Range/Units 01:31 Sodium 143 (136-145) mEq/L Potassium 3.7 (3.5-5.1) mEq/L Chloride 113 H (98-107) mEq/L Carbon Dioxide 26 (23-29) mEq/L BUN 27 H (8-23) mg/dL Creatinine 0.65 (0.60-1.20) mg/dL Glucose 124 H (70-105) mg/dL Calcium 7.8 L (8.6-10.3) mg/dL Adrenal panel 09/23/18 Range/Units 01:31 Sodium 143 (136-145) mEq/L Potassium 3.7 (3.5-5.1) mEq/L Chloride 113 H (98-107) mEq/L Carbon Dioxide 26 (23-29) mEq/L BUN 27 H (8-23) mg/dL Creatinine 0.65 (0.60-1.20) mg/dL Glucose 124 H (70-105) mg/dL Calcium 7.8 L (8.6-10.3) mg/dL All other labs normal. - Attending Attestation I examined this patient and my medical decision-making was reviewed with the Resident Physician. I agree with the documented findings, disposition and treatment plan as described except to the extent set forth below. Review the above assessment and evaluation and agree with the above plan. Patient has had hematemesis starting yesterday but has not had any episodes today. She denies any current nausea and denies any abdominal pain. On phy sical exam she denies any abdominal pain and there are no palpable masses. Noted low hemoglobin level and I do think it would be appropriate to go ahead and proceed with an EGD within the next 24 hours. We will want the patient to have a blood transfusion and have fluid resuscitation (given her history of MA) prior to doing the procedure which will require sedation and possible decrease in her blood pressure.
[2018-09-22 12:33] LABS: Estimated Average Glucose 108 mg/dl; Hemoglobin A1C 5.4 %
[2018-09-22] MEDS ORDERED: 0.9 % Sodium Chloride 250 ML ONE (13:25)
[2018-09-22] MEDS: Insulin LISPRO 300 UNITS/3 ML VIAL SQ SCH ×2 (14:19→18:24)
[2018-09-22] MEDS: D5% in 0.9% NACL 1,000 ML IVC SCH (17:59)
[2018-09-22] MEDS: Pantoprazole 40 MG VIAL IVP SCH (18:00)
[2018-09-22 20:11] LABS: Basophils % 0.2 %; Eosinophils % 0.3 %; Hematocrit 25.8 % (35.3-44.9); Hemoglobin 8.6 g/dL (11.5-15.4); Immature Granulocytes % 0.3 % (0-4); Lymphocytes # 1.4 K/mcL (0.6-4.6); Lymphocytes % 23.6 %; Mean Corpuscular HGB Conc 33.3 g/dL (31.6-35.5); Mean Corpuscular Hemoglobin 34.5 pg (28.0-33.3); Mean Corpuscular Volume 103.6 fL (83.0-100.0); Mean Platelet Volume 10.7 fL (9.4-12.4); Monocytes # 0.8 K/mcL (0.0-1.3); Neutrophils # 3.8 K/mcL (1.6-8.9); Platelet Count 429 K/mcL (140-400); Red Blood Count 2.49 M/mcL (3.82-4.97); Red Cell Distribution Width 18.3 % (11.5-14.5); Segmented Neutrophils % 62.6 %
[2018-09-23] MEDS: Insulin LISPRO 300 UNITS/3 ML VIAL SQ SCH ×4 (00:05→19:46)
[2018-09-23 02:08] LABS: Basophils % 0.4 %; Eosinophils % 0.6 %; Hematocrit 24.9 % (35.3-44.9); Hemoglobin 8.3 g/dL (11.5-15.4); Immature Granulocytes % 0.4 % (0-4); Lymphocytes # 1.7 K/mcL (0.6-4.6); Mean Corpuscular HGB Conc 33.3 g/dL (31.6-35.5); Mean Corpuscular Hemoglobin 34.2 pg (28.0-33.3); Mean Corpuscular Volume 102.5 fL (83.0-100.0); Monocytes # 0.8 K/mcL (0.0-1.3); Monocytes % 14.3 %; Neutrophils # 2.8 K/mcL (1.6-8.9); Platelet Count 441 K/mcL (140-400); Red Blood Count 2.43 M/mcL (3.82-4.97); Red Cell Distribution Width 18.6 % (11.5-14.5); Segmented Neutrophils % 52.3 %
[2018-09-23 02:23] LABS: BUN/Creatinine Ratio 42 (6-26); Blood Urea Nitrogen 27 mg/dL (8-23); Calcium 7.8 mg/dL (8.6-10.3); Carbon Dioxide 26 mEq/L (23-29); Chloride 113 mEq/L (98-107); Glucose 124 mg/dL (70-105); Magnesium 1.7 mg/dL (1.6-2.6); Osmolality,Calculated 303 (280-300); Phosphorous 3.3 mg/dL (2.7-4.5); Potassium 3.7 mEq/L (3.5-5.1); Sodium 143 mEq/L (136-145); eGFR For Non-African Americans > 60 (> 60)
[2018-09-23] MEDS: Pantoprazole 40 MG VIAL IVP SCH ×2 (05:59→17:09)
[2018-09-23] MEDS: D5% in 0.9% NACL 1,000 ML IVC SCH ×3 (06:40→19:46)
--- NOTE | 2018-09-23 10:52 | Anesthesia Evaluation PreOp ---
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, Other (depression) Other Medical History: Bleeding, GERD Anesthesia History: No Prior Anesthetic Complications, Past Anesthesia (appendectomy, cataract, cholecystectomy, hysterectomy, left knee, left shoulder, right shoulder, nicolasa hips, nicolasa feet) Alcohol Use: none Drug use: none Medications and Allergies Albuterol Sulfate [Albuterol Inhaler] 1 puff IH Q4-6H PRN 06/18/15 [History] Furosemide [Lasix] 40 mg PO DAILY 06/18/15 [History] Ipratropium [ATROVENT Inhaler] 2 puff IH BID 06/18/15 [History] Lansoprazole [Prevacid] 30 mg PO DAILY 06/18/15 [History] Lidocaine Patch [Lidoderm 5% patch] 1 appl TP DAILY PRN 06/18/15 [History] Metoprolol XL (24 HR) Succ [Toprol Xl] 12.5 mg PO BID 12/24/15 [History] Cyanocobalamin (B-12) [Vitamin B12] 1,000 mcg PO DAILY #90 tablet 07/24/17 [Rx] Folic Acid 1 tab PO DAILY #90 tablet 07/24/17 [Rx] Hydroxyurea [Hydrea] 500 mg PO Q48H 02/12/18 [History] Colesevelam HCl [Welchol] 625 mg PO TIDWM 02/13/18 [History] ALPRAZolam [Xanax 1 MG Tablet] 1 mg PO TID PRN 09/22/18 [History] Aspirin [Lo-Dose Aspirin EC] 81 mg PO DAILY 09/22/18 [History] FLUoxetine HCl [Fluoxetine HCl] 40 mg PO DAILY 09/22/18 [History] Allergy/AdvReac Type Severity Reaction Status Date / Time prednisone Allergy Intermediate Hives Verified 09/22/18 15:47 gabapentin [From Neurontin] AdvReac Unknown Nausea Verified 09/22/18 15:47 ibuprofen AdvReac Unknown Hives Verified 09/22/18 15:47 naproxen [From Naprosyn] AdvReac Unknown Nausea Verified 09/22/18 15:47 - Meds/Allergy Pre-op Review Medications Reviewed: Yes Allergies Reviewed: Yes Beta Blockers on Current Med List: Yes If Beta Blockers taken, Date/Time (Last Dose taken): held - patient recently hypotensive Anesthesia Results - Labs 09/23/18 01:31 09/23/18 01:31 - Imaging EKG: report reviewed, image reviewed (SINUS RHYTHM ST DEVIATION AND MODERATE T- WAVE ABNORMALITY, CONSIDER ANTEROLATERAL ISCHEMIA) Additional studies: TTE: EV/EV echocardiogram Impressions: Incomplete study due to patient's request. Only parasternal windows available. All LV lopez not well visualized, LVEF grossly normal. RV not well visualized, grossly normal systolic function. Recommend complete study when able. Nuclear stress: Impression: Perfusion imaging was negative for ischemia or infarct. Pharmacologic stress ECG is non diagnostic for ischemia due to baseline non-specific ST and T abnormalities. Gated EF > 70%. Anesthesia Exam Last Vital Signs Temp 98.4 F 09/23/18 02:58 Pulse 75 09/23/18 02:58 Resp 14 09/23/18 02:58 BP 110/64 09/23/18 02:58 Pulse Ox 98 09/23/18 09:35 Weight: 72 kg - HEENT Pupil (Motor): Pupils equal, EOMI Mallampati: III Teeth: Edentulous Oral Opening: Greater than 3 - ELECTROTYPE FINISHER LOC: Oriented - Cardiac Rhythm: Regular Murmur: None - Pulmonary Respiratory Effort: Symmetrical Anesthesia Assess/Plan ASA Score: 4 Level of consciousness: Cooperative Anesthetic Plan: MAC Monitoring Plan: Standard Monitors Recovery Plan: PACU
[2018-09-23] MEDS ORDERED: Lidocaine -MPF 2% 2 ML VIAL ONE (11:09)
[2018-09-23] MEDS ORDERED: *HR* Propofol 200 MG/20 ML VIAL IVP ONE ×2 (11:10→11:12)
[2018-09-23] MEDS ORDERED: Hydroxyurea 500 MG CAPSULE PO SCH (11:15)
--- NOTE | 2018-09-23 11:15 | Internal Med Progress Note ---
<Dav Griffin - Last Filed: 09/23/18 11:09> Hospitalist Progress Note - Encounter Date of Encounter: 09/23/18 Time of Encounter: 09:00 - Subjective Interval History: Patient denied having additional bouts of bloody vomiting. She denies abdominal pain or nausea. She denies chest pain and shortness of breath. Patient did not have any acute overnight events. - Exam Vitals: Temp Pulse Resp BP Pulse Ox 97.9 F 81 18 127/59 94 09/23/18 11:00 09/23/18 11:00 09/23/18 11:00 09/23/18 11:00 09/23/18 11:00 Exam: General: pleasant, without distress Cardiovascualr: Regular rate and rhythm with no murmur, absent gallops or rubs, absent pedal edema, radial pulses 2 out of 4 Lungs: Clear to auscultation bilaterally, not in respiratory distress Abdomen: Soft nontender, nondistended positive bowel sounds, absent hepatomegaly Skin: warm and dry, absent rash, absent open wounds and nodules MSK: absent clubbing, cyanosis, joints without swelling Neuro: Alert oriented 3 Psych: good insight and judgment - Assessment and Plan (1) Upper GI bleed Current Visit: Yes Status: Acute Assessment and Plan: Patient on admission reported filling half of basketed of blood with hematemesis Along with this patient had 60 8 black tarry bowel movements. On presentation her hemoglobin was 8.8 and she was hypotensive. She received 1 unit of packed red blood cells and her hemoglobin today is 8.3 She has not had additional episodes of vomiting. Chest x-rays negative patient is on Protonix IV twice a day She is plan for EGD today. She is hemodialysis stable today. (2) Anemia due to GI blood loss Current Visit: Yes Status: Acute Assessment and Plan: Patient takes folate and vitamin B12 supplementation She had iron panel done July 2018 which showed iron saturation 16% Patient likely has iron deficiency anemia and will be discharged on iron supplementation. (3) DVT prophylaxis Current Visit: Yes Status: Acute Assessment and Plan: EPCD (4) Anxiety Current Visit: Yes Status: Chronic Assessment and Plan: Patient takes Xanax 1 mg 3 times a day as needed at home Currently she is nothing by mouth. We will resume after EGD. (5) CAD (coronary artery disease) Current Visit: Yes Status: Chronic Assessment and Plan: History of coronary artery disease with DE at age 45 Holding aspirin. Holding metoprolol secondary to hypertension on admission. Troponin negative on admission (6) COPD (chronic obstructive pulmonary disease) with emphysema Current Visit: Yes Status: Chronic Assessment and Plan: Not an acute exacerbation Continue Atrovent inhaler (7) Essential thrombocythemia Current Visit: Yes Status: Suspected Assessment and Plan: Patient has a history of essential thrombocytosis Continue hydroxyurea (8) Hypertension Current Visit: Yes Status: Chronic Assessment and Plan: Holding antihypertensives due to GI bleed and hypotension on admission - Time Spent with Patient Total time spent is greater than 50% in coordination of care (as documented) at patient's floor/unit and/or counseling patient: Internal Medicine: Result - Labs CBC & Chem 7: 09/23/18 01:31 09/23/18 01:31 Labs: Short CBC 09/22/18 09/23/18 Range/Units 20:00 01:31 WBC 6.0 5.4 (4.3-11.1) K/mcL Hgb 8.6 L 8.3 L (11.5-15.4) g/dL Hct 25.8 L 24.9 L (35.3-44.9) % Plt Count 429 H 441 H (140-400) K/mcL Neutrophils # 3.8 2.8 (1.6-8.9) K/mcL BMP 09/23/18 01:31 Sodium 143 Potassium 3.7 Chloride 113 H Carbon Dioxide 26 BUN 27 H Creatinine 0.65 Glucose 124 H Calcium 7.8 L - ABG Interpretation ABG results: PT/INR, D-dimer PT 14.0 Seconds (9.4-12.1) H 09/22/18 09:25 Consult Discharge Plan - Plan Referrals: Archana Saravia, SQL PROGRAMMER ANALYST [Primary Care Provider] - <Roberta Hollis - Last Filed: 09/23/18 13:48> Hospitalist Progress Note - Encounter Date of Encounter: 09/23/18 - Exam Vitals: Temp Pulse Resp BP Pulse Ox 98.7 F 78 14 119/73 94 09/23/18 12:50 09/23/18 12:50 09/23/18 12:50 09/23/18 12:50 09/23/18 12:50 - Assessment and Plan (1) COPD (chronic obstructive pulmonary disease) with emphysema Current Visit: Yes Status: Chronic (2) CAD (coronary artery disease) Current Visit: Yes Status: Chronic (3) Hypertension Current Visit: Yes Status: Chronic (4) DVT prophylaxis Current Visit: No Status: Chronic (5) Compression fracture of L4 vertebra Current Visit: No Status: Chronic (6) Anemia due to GI blood loss Current Visit: Yes Status: Acute (7) Thrombocytosis Current Visit: Yes Status: Chronic (8) GI bleed Current Visit: Yes Status: Acute (9) Hypotension Current Visit: Yes Status: Acute - Time Spent with Patient Total time spent is greater than 50% in coordination of care (as documented) at patient's floor/unit and/or counseling patient: Internal Medicine: Result - Labs CBC & Chem 7: 09/23/18 11:48 09/23/18 01:31 Labs: Short CBC 09/22/18 09/23/18 09/23/18 Range/Units 20:00 01:31 11:48 WBC 6.0 5.4 (4.3-11.1) K/mcL Hgb 8.6 L 8.3 L 7.9 L (11.5-15.4) g/dL Hct 25.8 L 24.9 L 24.4 L (35.3-44.9) % Plt Count 429 H 441 H (140-400) K/mcL Neutrophils # 3.8 2.8 (1.6-8.9) K/mcL BMP 09/23/18 01:31 Sodium 143 Potassium 3.7 Chloride 113 H Carbon Dioxide 26 BUN 27 H Creatinine 0.65 Glucose 124 H Calcium 7.8 L Cardiac Enzymes 09/23/18 Range/Units 11:48 Troponin I < 0.03 (< 0.04) ng/mL - ABG Interpretation ABG results: PT/INR, D-dimer PT 14.0 Seconds (9.4-12.1) H 09/22/18 09:25 - Attending Attestation I examined this patient and my medical decision-making was [facility] Griffin. I agree with the documented findings, disposition and treatment plan as described except to the extent set forth below. Ms Campos is being observed for gi bleeding awake, awaiting egd, no abd pain,+ emesis "clear" denies blood. no cp, sob. gen- awake, appears stated age eyes- no conjunctival pallor cv- rrr, no murmurs, no le edema lungs- ctabl, normal resp effort abd- soft, non tender, non distended, + bs skin- no pallor GIB- hold asa, cont IV PPI, surgery to do egd today, serial h/hs Acute anemia 2/2 gi blood loss as above- monitor hgb, transfuse to keep hgb >7 prn Hypotension- likely 2/2 bleeding- ivfs, prbc as needed, gi work up / tx as above Old L4 compression fracture (july 2018)- prn pain control, outpt fu and pt/ot prn further diagnoses and plan as noted by resident <Dav Griffin - Last Filed: 09/23/18 11:09> (5) CAD (coronary artery disease) Qualifiers: Coronary Disease-Associated Artery/Lesion type: [place] artery [place] vs. tr ansplanted heart: [place] heart Associated angina: without angina Qualified Code(s): I25.10 - Atherosclerotic heart disease of [place] coronary artery without angina pectoris (6) COPD (chronic obstructive pulmonary disease) with emphysema Qualifiers: Emphysema type: unspecified Qualified Code(s): J43.9 - Emphysema, unspecified (8) Hypertension Qualifiers: Hypertension type: essential hypertension Qualified Code(s): I10 - Essential (primary) hypertension <Roberta Hollis - Last Filed: 09/23/18 13:48> (1) COPD (chronic obstructive pulmonary disease) with emphysema Qualifiers: Emphysema type: unspecified Qualified Code(s): J43.9 - Emphysema, unspecified (2) CAD (coronary artery disease) Qualifiers: Coronary Disease-Associated Artery/Lesion type: [place] artery [place] vs. transplanted heart: [place] heart Associated angina: without angina Qualified Code(s): I25.10 - Atherosclerotic heart disease of [place] coronary artery wi thout angina pectoris (3) Hypertension Qualifiers: Hypertension type: essential hypertension Qualified Code(s): I10 - Essential (primary) hypertension (5) Compression fracture of L4 vertebra Qualifiers: Encounter type: initial encounter Fracture type: closed Qualified Code(s): S32.040A - Wedge compression fracture of fourth lumbar vertebra, initial encounter for closed fracture (8) GI bleed Qualifiers: GI bleed type/associated pathology: unspecified gastrointestinal hemorrhage type Qualified Code(s): K92.2 - Gastrointestinal hemorrhage, unspecified (9) Hypotension Qualifiers: Hypotension type: unspecified hypotension type Qualified Code(s): I95.9 - Hypotension, unspecified
[2018-09-23] MEDS ORDERED: *HR* Etomidate 40 MG/20 ML VIAL IVP ONE (11:36)
[2018-09-23 11:58] LABS: Hematocrit 24.4 % (35.3-44.9); Hemoglobin 7.9 g/dL (11.5-15.4)
--- NOTE | 2018-09-23 12:17 | Event Note ---
Date of Encounter: 09/23/18 Time of Encounter: 12:16 EGD performed. 2 small cratered ulcers with no segment of bleeding. No blood or clots within the stomach. Biopsies obtained for histology and close. Will add Carafate and patient can start full liquid diet and advance as tolerated. Will follow from a distance. We will contact the patient once the pathology results have returned; patient does not need to make a follow-up to see us in the office as an outpatient.
--- NOTE | 2018-09-23 12:37 | Anesthesia Evaluation Post Op ---
Date of Encounter: 09/23/18 Time of Encounter: 12:36 - Vital Signs Vital Signs: Last Vital Signs Temp 97.9 F 09/23/18 11:00 Pulse 81 09/23/18 11:00 Resp 18 09/23/18 11:00 BP 127/59 09/23/18 11:00 Pulse Ox 94 09/23/18 11:00 - Lungs Lungs: Clear Ascult./Percussion - Airway Airway: Non-obstructed - Cardiovascular Regular Rate - Mental Status Mental Status: Alert & Oriented, Answers Appropriately - Pain Pain Scale: 1 - Nausea Vomiting Nausea Vomiting: Not Present - Hydration Hydration: NPO - Discharge PostOp Status: Transfer Patient to floor
[2018-09-23] MEDS ORDERED: *HR* Dextrose 50 % in Water (Syg) 50 ML SYRINGE IVP PRN (12:44)
[2018-09-23] MEDS ORDERED: Dextrose Gel 15 GM/37.5 ML TUBE PO PRN ×2 (12:44)
[2018-09-23] MEDS ORDERED: Ondansetron 4 MG/2 ML VIAL IVP PRN (12:44)
[2018-09-23] MEDS ORDERED: Naloxone 0.4 MG/ML INJ IVP PRN (12:44)
[2018-09-23] MEDS ORDERED: D5% in Water 1,000 ML IVC PRN (12:44)
[2018-09-23] MEDS: traMADol 50 MG TABLET PO PRN (17:13)
[2018-09-23 18:55] LABS: Hematocrit 24.1 % (35.3-44.9); Hemoglobin 7.7 g/dL (11.5-15.4)
[2018-09-23] MEDS ORDERED: Ipratropium 1 PUFF INHALER IH SCH (22:00)
[2018-09-23 22:49] LABS: Hematocrit 22.7 % (35.3-44.9); Hemoglobin 7.4 g/dL (11.5-15.4)
[2018-09-23] MEDS: Ipratropium 1 PUFF INHALER IH SCH (22:56)
[2018-09-24] MEDS: D5% in 0.9% NACL 1,000 ML IVC SCH ×2 (00:55→10:47)
[2018-09-24] MEDS: Insulin LISPRO 300 UNITS/3 ML VIAL SQ SCH ×4 (00:56→17:08)
[2018-09-24 01:16] LABS: Hematocrit 21.2 % (35.3-44.9); Hemoglobin 6.8 g/dL (11.5-15.4)
[2018-09-24 01:35] LABS: BUN/Creatinine Ratio 31 (6-26); Blood Urea Nitrogen 15 mg/dL (8-23); Calcium 7.9 mg/dL (8.6-10.3); Carbon Dioxide 27 mEq/L (23-29); Chloride 116 mEq/L (98-107); Glucose 115 mg/dL (70-105); Osmolality,Calculated 302 (280-300); Potassium 3.3 mEq/L (3.5-5.1); Sodium 145 mEq/L (136-145); eGFR For Non-African Americans > 60 (> 60)
[2018-09-24] MEDS ORDERED: 0.9 % Sodium Chloride 250 ML ONE (04:14)
[2018-09-24] MEDS: Menthol 9.1 MG LOZENGE PO PRN ×2 (04:42→21:08)
[2018-09-24] MEDS: Ipratropium/Albuterol Neb 3 ML IH PRN ×3 (05:23→20:49)
[2018-09-24] MEDS: Pantoprazole 40 MG VIAL IVP SCH ×2 (06:12→17:12)
[2018-09-24] MEDS ORDERED: FLUoxetine 20 MG CAPSULE PO SCH (09:00)
[2018-09-24 09:28] LABS: Hematocrit 27.8 % (35.3-44.9)
--- NOTE | 2018-09-24 09:37 | Internal Med Progress Note ---
<Dav Griffin - Last Filed: 09/24/18 09:33> Hospitalist Progress Note - Encounter Date of Encounter: 09/24/18 Time of Encounter: 09:33 - Subjective Interval History: Overnight patient's hemoglobin decreased to 6.8. She was transfused 1 unit packed red blood cell and hemoglobin increased to 9. She remained clinically s table overnight. She did not have additional bouts of hematemesis. She had a black tarry bowel movement yesterday. She reports a cough that is productive. He denies shortness of breath, chest pain, abdominal pain. She is tolerating her diet. She also reports back pain secondary to her compression fracture. - Exam Vitals: Temp Pulse Resp BP Pulse Ox 98.8 F 70 14 116/64 94 09/24/18 07:58 09/24/18 07:58 09/24/18 07:58 09/24/18 07:58 09/24/18 07:58 Exam: General: pleasant, without distress Cardiovascualr: Regular rate and rhythm with no murmur, absent gallops or rubs, absent pedal edema, radial pulses 2 out of 4 Lungs: Bilateral inspiratory wheezing otherwise clear bilaterally, not in respiratory distress Abdomen: Soft nontender, nondistended positive bowel sounds, absent hepatomegaly Skin: warm and dry, absent rash, absent open wounds and nodules MSK: absent clubbing, cyanosis, joints without swelling Neuro: Alert oriented 3 Psych: good insight and judgment - Assessment and Plan (1) Upper GI bleed Current Visit: Yes Status: Acute Assessment and Plan: Patient on admission reported filling half of basket of blood with hematemesis Along with this patient had 6- 8 black tarry bowel movements. On presentation her hemoglobin was 8.8 and she was hypotensive. She received 1 unit of packed red blood cells on admission She has not had additional episodes of vomiting. Overnight hemoglobin decreased to 6.8 she had her second to note of packed red blood cells Patient is hemodynamically stable. She had another black tarry bowel movement this morning. We will consult with surgery again about further intervention as her hemoglobin decreased overnight. Continue Protonix. Discontinue IV fluids as patient is eating. Replace potassium. (2) Anemia due to GI blood loss Current Visit: Yes Status: Acute Assessment and Plan: Patient takes folate and vitamin B12 supplementation She had iron panel done July 2018 which showed iron saturation 16% Heart iron supplementation. (3) DVT prophylaxis Current Visit: Yes Status: Acute Assessment and Plan: EPCD (4) Anxiety Current Visit: Yes Status: Chronic Assessment and Plan: Patient takes Xanax 1 mg 3 times a day as needed at home resume low dose xanax to prevent withdrawal (5) CAD (coronary artery disease) Current Visit: Yes Status: Chronic Assessment and Plan: History of coronary artery disease with [place] at age 45 Holding aspirin. Holding metoprolol secondary to hypertension on admission. Troponin negative on admission (6) COPD (chronic obstructive pulmonary disease) with emphysema Current Visit: Yes Status: Chronic Assessment and Plan: Not an acute exacerbation Continue Atrovent inhaler and continue donebs complaining about cough which was not present during my conversation with her this morning. (7) Essential thrombocythemia Current Visit: Yes Status: Suspected Assessment and Plan: Patient has a history of essential thrombocytosis Continue hydroxyurea (8) Hypertension Current Visit: Yes Status: Chronic Assessment and Plan: Holding antihypertensives due to GI bleed and hypotension on admission - Time Spent with Patient Total time spent is greater than 50% in coordination of care (as documented) at patient's floor/unit and/or counseling patient: Internal Medicine: Result - Labs CBC & Chem 7: 09/24/18 09:01 09/24/18 00:41 Labs: Short CBC 09/23/18 09/23/18 09/23/18 Range/Units 11:48 18:25 22:30 Hgb 7.9 L 7.7 L 7.4 L (11.5-15.4) g/dL Hct 24.4 L 24.1 L 22.7 L (35.3-44.9) % 09/24/18 09/24/18 Range/Units 00:41 09:01 Hgb 6.8 L 9.0 L D (11.5-15.4) g/dL Hct 21.2 L 27.8 L (35.3-44.9) % BMP 09/24/18 00:41 Sodium 145 Potassium 3.3 L Chloride 116 H Carbon Dioxide 27 BUN 15 Creatinine 0.48 L Glucose 115 H Calcium 7.9 L Cardiac Enzymes 09/23/18 Range/Units 11:48 Troponin I < 0.03 (< 0.04) ng/mL - ABG Interpretation ABG results: PT/INR, D-dimer PT 14.0 Seconds (9.4-12.1) H 09/22/18 09:25 - Impressions Impressions Chest X-Ray 09/23/18 17:41 IMPRESSION: Mild scarring in the mid to lower left lung. Mild cardiomegaly. D/ / Rodolfo Jansen MD / Rodolfo Jansen MD Interpreting Provider: Rodolfo Jansen MD Consult Discharge Plan - Plan Referrals: Archana Saravia, SEAM FINISHER [Primary Care Provider] - <Roberta Hollis - Last Filed: 09/24/18 12:12> Hospitalist Progress Note - Encounter Date of Encounter: 09/24/18 - Exam Vitals: Temp Pulse Resp BP Pulse Ox 98.7 F 89 15 112/66 93 09/24/18 10:28 09/24/18 10:28 09/24/18 10:28 09/24/18 10:28 09/24/18 10:28 - Assessment and Plan (1) COPD (chronic obstructive pulmonary disease) with emphysema Current Visit: Yes Status: Chronic (2) CAD (coronary artery disease) Current Visit: Yes Status: Chronic (3) Hypertension Current Visit: Yes Status: Chronic (4) DVT prophylaxis Current Visit: No Status: Chronic (5) Compression fracture of L4 vertebra Current Visit: No Status: Chronic (6) Anemia due to GI blood loss Current Visit: Yes Status: Acute (7) Thrombocytosis Current Visit: Yes Status: Chronic (8) GI bleed Current Visit: Yes Status: Acute (9) Hypotension Current Visit: Yes Status: Acute - Time Spent with Patient Total time spent is greater than 50% in coordination of care (as documented) at patient's floor/unit and/or counseling patient: Internal Medicine: Result - Labs CBC & Chem 7: 09/24/18 09:01 09/24/18 00:41 Labs: Short CBC 09/23/18 09/23/18 09/24/18 Range/Units 18:25 22:30 00:41 Hgb 7.7 L 7.4 L 6.8 L (11.5-15.4) g/dL Hct 24.1 L 22.7 L 21.2 L (35.3-44.9) % 09/24/18 Range/Units 09:01 Hgb 9.0 L D (11.5-15.4) g/dL Hct 27.8 L (35.3-44.9) % BMP 09/24/18 00:41 Sodium 145 Potassium 3.3 L Chloride 116 H Carbon Dioxide 27 BUN 15 Creatinine 0.48 L Glucose 115 H Calcium 7.9 L Cardiac Enzymes 09/23/18 Range/Units 11:48 Troponin I < 0.03 (< 0.04) ng/mL - ABG Interpretation ABG results: PT/INR, D-dimer PT 14.0 Seconds (9.4-12.1) H 09/22/18 09:25 - Impressions Impressions Chest X-Ray 09/23/18 17:41 IMPRESSION: Mild scarring in the mid to lower left lung. Mild cardiomegaly. D/ / Rodolfo Jansen MD / Rodolfo Jansen MD Interpreting Provider: Rodolfo Jansen MD - Attending Attestation I examined this patient and my medical decision-making was reviewed with the Resident Physician Dr Griffin. I agree with the documented findings, disposition and treatment plan as described except to the extent set forth below. Ms Campos is being observed for gi bleeding awake, no n/v. no abd pain. black bm last night. no syncope, presyncope or cp. has had dry cough, clear sputum, consistent with her usual sputum with copd. + wheezing gen- alert, awake,appears stated age eyes- pupils equal round , no conjunctival pallor cv- reg rate and rhythm, normal s1,s2, no murmurs appreciated lungs- + exp wheezing, no rhonchi or crackles, normal resp effort on o2 2l nc abd- soft, non tender, non distended, + bs neuro- AAOx3 GIB likely 2/2 gastric ulcers- egd 09/23 with two non bleeding ulcers, bx taken, hold asa, cont IV PPI + carafate, serial h/hs, as per surg adat Acute anemia 2/2 gi blood loss as above- 1 unit prbc for hgb 6.8 this morning, repeat with appropriate response, surgery team aware, cont to monitor Hypotension, resolved- likely 2/2 bleeding- prbc as needed, gi work up / tx as above Old L4 compression fracture (july 2018)- prn pain control, outpt fu and pt/ot prn Cough, does not appear to be copd exacerbation- normal CXR, cont home meds, nebs, wean o2 nc, cont to monitor further diagnoses and plan as noted by resident <Dav Griffin - Last Filed: 09/24/18 09:33> (5) CAD (coronary artery disease) Qualifiers: Coronary Disease-Associated Artery/Lesion type: [place] artery [place] vs. transplanted heart: [place] heart Associated angina: without angina Qualified Code(s): I25.10 - Atherosclerotic heart disease of [place] coronary artery without angina pectoris (6) COPD (chronic obstructive pulmonary disease) with emphysema Qualifiers: Emphysema type: unspecified Qualified Code(s): J43.9 - Emphysema, unspecified (8) Hypertension Qualifiers: Hypertension type: essential hypertension Qualified Code(s): I10 - Essential (primary) hypertension <Roberta Hollis - Last Filed: 09/24/18 12:12> (1) COPD (chronic obstructive pulmonary disease) with emphysema Qualifiers: Emphysema type: unspecified Qualified Code(s): J43.9 - Emphysema, unspecified (2) CAD (coronary artery disease) Qualifiers: Coronary Disease-Associated Artery/Lesion type: [place] artery [place] vs. transplanted heart: [place] heart Associated angina: without angina Qualified Code(s): I25.10 - Atherosclerotic heart disease of [place] coronary artery without angina pectoris (3) Hypertension Qualifiers: Hypertension type: essential hypertension Qualified Code(s): I10 - Essential (primary) hypertension (5) Compression fracture of L4 vertebra Qualifiers: Encounter type: initial encounter Fracture type: closed Qualified Code(s): S32.040A - [place] compression fracture of fourth lumbar vertebra, initial en counter for closed fracture (8) GI bleed Qualifiers: GI bleed type/associated pathology: unspecified gastrointestinal hemorrhage type Qualified Code(s): K92.2 - Gastrointestinal hemorrhage, unspecified (9) Hypotension Qualifiers: Hypotension type: unspecified hypotension type Qualified Code(s): I95.9 - Hypotension, unspecified
[2018-09-24] MEDS ORDERED: ALPRAZolam 0.25 MG TABLET PO PRN (09:38)
[2018-09-24] MEDS ORDERED: Potassium Chloride Elixir 20 MEQ/15 ML UDC PO ONE (09:39)
[2018-09-24] MEDS: Ipratropium 1 PUFF INHALER IH SCH ×2 (10:22→20:49)
[2018-09-24] MEDS: FLUoxetine 20 MG CAPSULE PO SCH (10:48)
[2018-09-24] MEDS ORDERED: Potassium Chloride 40 MEQ, Lidocaine 1% 2 ML in D5% in Water 500 ML IVPB ONE (11:44)
[2018-09-24 13:13] LABS: VBG HCO3 25 mEq/L (21-27); VBG PCO2 45 mmHg (41-51); VBG PH 7.35 pH Units (7.32-7.42); VBG PO2 139 mmHg (25-50)
[2018-09-24 13:15] LABS: Hemoglobin 8.5 g/dL (11.5-15.4)
--- NOTE | 2018-09-24 16:16 | Electrocardiograph Report ---
[address] [place] [id number] Test Date: 2018-09-23 Pat Name: Azul Campos Department: 115 Room: 3A43 Gender: F [employer]: JR : 1945 Requested By: Melanie Carranza Order Number: [id number] Reading MD: Hemalatha Livingston Measurements Intervals Hardy Rate: 81 P: 104 ID: [id number] QRS: 15 QRSD: 81 T: -36 QT: 391 QTc: 428 Interpretive Statements SINUS RHYTHM ST DEVIATION AND MODERATE T-WAVE ABNORMALITY, CONSIDER ANTERIOR ISCHEMIA Electronically Signed On 09-24-2018 16:14:35 EDT by Hemalatha Livingston
[2018-09-24 19:00] LABS: Hematocrit 26.2 % (35.3-44.9); Hemoglobin 8.4 g/dL (11.5-15.4)
[2018-09-24] MEDS: traMADol 50 MG TABLET PO PRN (21:11)
[2018-09-25] MEDS: Insulin LISPRO 300 UNITS/3 ML VIAL SQ SCH ×3 (02:12→11:32)
[2018-09-25] MEDS: Pantoprazole 40 MG VIAL IVP SCH (05:21)
[2018-09-25] MEDS ORDERED: Potassium Chloride Elixir 20 MEQ/15 ML UDC PO ONE (07:29)
--- NOTE | 2018-09-25 07:30 | Discharge Summary ---
<Enrique Chan S - Last Filed: 09/25/18 11:48> - NOTES TO OUTPATIENT PROVIDER Notes to Outpatient Provider: f/u with PCP in 1 week from discharge. Continue carfate and protonix. Resume metoprolol on d/c. Orders not resulted at time of discharge: Pending orders 09/22/18 09:12 ECG 12 lead ECG [ECG] Stat 09/22/18 09:25 Red Blood Cells [BBK] Stat Type and Screen [BBK] Stat 09/23/18 12:13 Surgical Pathology [PTH] Routine 09/25/18 04:00 Basic Metabolic Panel AM 0400 Complete Blood Count [HEME] AM 0400 Date of Encounter: 09/25/18 Time of Encounter: 08:43 - Discharge Diagnosis (1) Anemia due to GI blood loss Priority: Primary Status: Acute (2) Anemia Priority: Secondary Status: Chronic Qualifiers: Anemia type: folate deficiency Folate deficiency anemia type: unspecified folate deficiency Qualified Code(s): D52.9 - Folate deficiency anemia, unspecified (3) COPD (chronic obstructive pulmonary disease) with emphysema Priority: Secondary Status: Chronic Qualifiers: Emphysema type: unspecified Qualified Code(s): J43.9 - Emphysema, unspecified (4) CAD (coronary artery disease) Priority: Secondary Status: Chronic Qualifiers: Coronary Disease-Associated Artery/Lesion type: [place] artery [place] vs. transplanted heart: [place] heart Associated angina: without angina Qualified Code(s): I25.10 - Atherosclerotic heart disease of [place] coronary artery without angina pectoris (5) Hypertension Priority: Secondary Status: Chronic Qualifiers: Hypertension type: essential hypertension Qualified Code(s): I10 - Essential (primary) hypertension (6) DVT prophylaxis Priority: Secondary Status: Chronic (7) Compression fracture of L4 vertebra Priority: Secondary Status: Chronic Qualifiers: Encounter type: initial encounter Fracture type: closed Qualified Code(s): S32.040A - Wedge compression fracture of fourth lumbar vertebra, initial encounter for closed fracture (8) Melena Priority: Secondary Status: Acute (9) Upper GI bleed Priority: Secondary Status: Acute Hospital course: Ms. Campos is a 73 year old female with PMH of COPD, asthma, a fib on ASA, arthritis, CAD, depression, CVA, osteoporosis, and hx of [place]. She was admitted on 09/22 with the cc of vomiting blood. She reported throwing up blood the night before, dark and red in color and threw up six times. She did report dark stool as well, up to 8 bowel movements. She has never had a GI bleed before. In the ER the pt had an admission hemologinb of 8.8, which decreased to 8.6 and then 7.4. FOBT (+) for occult blood. XR chest was negative for acute cardiopulmonary process. While in the hospital, she was given a 1 unit transfusion for a hemoglobin of 7.4. She was seen and evaluated by Dr. Escamilla from acute care surgery for EGD. EGD report as follows: 2 small cratered ulcers with no segment of bleeding. No blood or clots within the stomach. Biopsies obtained for histology and close. Sx will contact the pt once pathology results have returned. They do not feel she needs to follow up as an outpatient. The patient is medically stable for discharge. She will be continued on carafate QID and protonix BID. Prescriptions transmitted to pharmacy. Her hemoglobin this morning was stable at 9.0 x 2. She denies any active chest pain, SOB, nausea, vomiting or more tarry stools. Discharge discussed with: patient - Time Spent with Patient Total time spent providing and/or coordinating discharge services: Time spent: Less than 30 minutes - Discharge Medications Prescriptions: New Pantoprazole Sodium [Protonix] 40 mg PO BID 30 Days #60 tablet. Sucralfate [Carafate] 1 gm PO QIDAC 30 Days #120 udc Continue Ipratropium [ATROVENT Inhaler] 2 puff IH BID Lidocaine Patch [Lidoderm 5% patch] 1 appl TP DAILY PRN PRN Reason: Pain Furosemide [Lasix] 40 mg PO DAILY Albuterol Sulfate [Albuterol Inhaler] 1 puff IH Q4-6H PRN PRN Reason: Shortness Of Breath Metoprolol XL (24 HR) Succ [Toprol Xl] 12.5 mg PO BID Cyanocobalamin (B-12) [Vitamin B12] 1,000 mcg PO DAILY #90 tablet Folic Acid 1 tab PO DAILY #90 tablet Hydroxyurea [Hydrea] 500 mg PO Q48H Colesevelam HCl [Welchol] 625 mg PO TIDWM ALPRAZolam [Xanax 1 MG Tablet] 1 mg PO TID PRN PRN Reason: Anxiety Aspirin [Lo-Dose Aspirin EC] 81 mg PO DAILY FLUoxetine HCl [Fluoxetine HCl] 40 mg PO DAILY Discontinued Lansoprazole [Prevacid] 30 mg PO DAILY Home Medications: Albuterol Sulfate [Albuterol Inhaler] 1 puff IH Q4-6H PRN 06/18/15 [History] Furosemide [Lasix] 40 mg PO DAILY 06/18/15 [History] Ipratropium [ATROVENT Inhaler] 2 puff IH BID 06/18/15 [History] Lidocaine Patch [Lidoderm 5% patch] 1 appl TP DAILY PRN 06/18/15 [History] Metoprolol XL (24 HR) Succ [Toprol Xl] 12.5 mg PO BID 12/24/15 [History] Cyanocobalamin (B-12) [Vitamin B12] 1,000 mcg PO DAILY #90 tablet 07/24/17 [Rx] Folic Acid 1 tab PO DAILY #90 tablet 07/24/17 [Rx] Hydroxyurea [Hydrea] 500 mg PO Q48H 02/12/18 [History] Colesevelam HCl [Welchol] 625 mg PO TIDWM 02/13/18 [History] ALPRAZolam [Xanax 1 MG Tablet] 1 mg PO TID PRN 09/22/18 [History] Aspirin [Lo-Dose Aspirin EC] 81 mg PO DAILY 09/22/18 [History] FLUoxetine HCl [Fluoxetine HCl] 40 mg PO DAILY 09/22/18 [History] Pantoprazole Sodium [Protonix] 40 mg PO BID 30 Days #60 tablet. 09/25/18 [Rx] Sucralfate [Carafate] 1 gm PO QIDAC 30 Days #120 udc 09/25/18 [Rx] Allergies/Adverse Reactions: Allergy/AdvReac Type Severity Reaction Status Date / Time prednisone Allergy Intermediate Hives Verified 09/22/18 15:47 gabapentin [From Neurontin] AdvReac Unknown Nausea Verified 09/22/18 15:47 ibuprofen AdvReac Unknown Hives Verified 09/22/18 15:47 naproxen [From Naprosyn] AdvReac Unknown Nausea Verified 09/22/18 15:47 Date of admission: 09/24/18 12:16 Primary care physician: Archana Saravia CNP Consults: 09/22/18 10:39 Consult to Surgery [CONS] Routine Consulting Provider: [facility] Reason for Consult: GI bleeding Call Completed: Yes 09/22/18 14:13 Consult to Nutrition [CONS] Routine Comment: Consulting Provider: NUTRITION Reason for Dietary Consult: MST Score 09/22/18 15:12 Consult to Malt House Operator ([facility]) [CONS] Routine Reason For Exam: Reason for SW Consult: from home alone, ambulance stated pt has five dogs in the home, dog feces everywhere. Discharging clinician: Enrique Chan Anticipated date of discharge: 09/25/18 - Constitutional Vitals: Temp Pulse Resp BP Pulse Ox 98.6 F 58 15 113/67 94 09/25/18 06:46 09/25/18 06:46 09/25/18 06:46 09/25/18 06:46 09/25/18 06:46 Exam: General: pleasant, without distress Cardiovascualr: Regular rate and rhythm with no murmur, absent gallops or rubs, absent pedal edema, radial pulses 2 out of 4 Lungs: Bilateral inspiratory wheezing otherwise clear bilaterally, not in respiratory distress Abdomen: Soft nontender, nondistended positive bowel sounds, absent hepatomegaly Skin: warm and dry, absent rash, absent open wounds and nodules MSK: absent clubbing, cyanosis, joints without swelling Neuro: Alert oriented 3 Psych: good insight and judgment, appropriate affect/mood - Patient Status Disposition: Home, Self-Care Condition: Good Functional capacity at discharge: independent ambulation Overall status at discharge: patient is progressing back to baseline - Discharge Instructions Follow Up With: Archana Saravia, [facility] [Primary Care Provider] - Forms: ED Satisfaction Letter - Diet and Activity Activity: increase activity as tolerated Diet: advance to your usual diet <Roberta Hollis - Last Filed: 09/25/18 12:45> Orders not resulted at time of discharge: Pending orders 09/22/18 09:12 ECG 12 lead ECG [ECG] Stat 09/22/18 09:25 Red Blood Cells [BBK] Stat Type and Screen [BBK] Stat 09/23/18 12:13 Surgical Pathology [PTH] Routine Date of Encounter: 09/25/18 - Discharge Diagnosis (1) COPD (chronic obstructive pulmonary disease) with emphysema Status: Chronic Qualifiers: Emphysema type: unspecified Qualified Code(s): J43.9 - Emphysema, unspecified (2) CAD (coronary artery disease) Status: Chronic Qualifiers: Coronary Disease-Associated Artery/Lesion type: [place] artery [place] vs. transplanted heart: [place] heart Associated angina: without angina Qualified Code(s): I25.10 - Atherosclerotic heart disease of [place] coronary artery without angina pectoris (3) Hypertension Status: Chronic Qualifiers: Hypertension type: essential hypertension Qualified Code(s): I10 - Essential (primary) hypertension (4) DVT prophylaxis Status: Chronic (5) Compression fracture of L4 vertebra Status: Chronic Qualifiers: Encounter type: initial encounter Fracture type: closed Qualified Code(s): S32.040A - Wedge compression fracture of fourth lumbar vertebra, initial encounter for closed fracture (6) Anemia due to GI blood loss Status: Acute (7) Thrombocytosis Status: Chronic (8) GI bleed Status: Acute Qualifiers: GI bleed type/associated pathology: unspecified gastrointestinal hemorrhage type Qualified Code(s): K92.2 - Gastrointestinal hemorrhage, unspecified (9) Hypotension Status: Acute Qualifiers: Hypotension type: unspecified hypotension type Qualified Code(s): I95.9 - Hypotension, unspecified Hospital course: Ms. Campos is a 73 year old female - Time Spent with Patient Total time spent providing and/or coordinating discharge services: Time spent: Greater than 30 minutes (35 min) Date of admission: 09/24/18 12:16 Primary care physician: Archana Saravia CNP Consults: 09/22/18 10:39 Consult to Surgery [CONS] Routine Consulting Provider: [facility] Reason for Consult: GI bleeding Call Completed: Yes 09/22/18 14:13 Consult to Nutrition [CONS] Routine Comment: Consulting Provider: NUTRITION Reason for Dietary Consult: MST Score 09/22/18 15:12 Consult to Malt House Operator ([facility]) [CONS] Routine Reason For Exam: Reason for SW Consult: from home alone, ambulance stated pt has five dogs in the home, dog feces everywhere. - Constitutional Vitals: Temp Pulse Resp BP Pulse Ox 99.0 F 74 15 104/60 92 09/25/18 11:15 09/25/18 11:15 09/25/18 11:15 09/25/18 11:15 09/25/18 11:15 - Attending Attestation I examined this patient and my medical decision-making was reviewed with the Resident Physician Dr Chan. I agree with the documented findings, disposition and treatment plan as described except to the extent set forth below. Ms Campos was being observed for gi bleeding and was found to have non bleeding gastric ulcers. awake, no abd pain. no nausea or emesis. denies lightheadedness, dizziness, fatigue or sob. cough is better, any phlegm is clear gen- alert, awake,appears stated age eyes- no conjunctival pallor cv- reg rate and rhythm, normal s1,s2, no le edema lungs- no wheezing, no rhonchi or crackles, normal resp effort on room air abd- soft, non tender, non distended, + bs neuro- AAOx3 GIB likely 2/2 gastric ulcers- egd 09/23 with two non bleeding ulcers, bx taken and surgery will contact her with results, cont PPI + carafate, may resume home asa for her cad and fu outpt with pcp Acute anemia 2/2 gi blood loss, improved- stable hgbs s/p prbcs Hypotension, resolved- likely 2/2 bleeding Old L4 compression fracture (july 2018)- outpt fu and pt/ot prn Cough, does not appear to be copd exacerbation- normal CXR, cont home meds and home nebs prn further diagnoses and plan as noted by resident time spent on dc 35 min
[2018-09-25] MEDS: Ipratropium 1 PUFF INHALER IH SCH (07:41)
[2018-09-25 08:11] LABS: Eosinophils # 0.1 K/mcL (0.0-0.6); Eosinophils % 1.6 %; Hematocrit 27.9 % (35.3-44.9); Immature Granulocytes % 0.8 % (0-4); Lymphocytes # 0.8 K/mcL (0.6-4.6); Lymphocytes % 13.3 %; Mean Corpuscular HGB Conc 32.3 g/dL (31.6-35.5); Mean Corpuscular Hemoglobin 33.6 pg (28.0-33.3); Mean Corpuscular Volume 104.1 fL (83.0-100.0); Mean Platelet Volume 11.5 fL (9.4-12.4); Monocytes # 0.8 K/mcL (0.0-1.3); Monocytes % 13.6 %; Neutrophils # 4.3 K/mcL (1.6-8.9); Nucleated Red Blood Cells 0.3 /100 WBC (0); Platelet Count 330 K/mcL (140-400); Red Blood Count 2.68 M/mcL (3.82-4.97); Red Cell Distribution Width 20.1 % (11.5-14.5); Segmented Neutrophils % 70.7 %
[2018-09-25] MEDS: Ipratropium/Albuterol Neb 3 ML IH PRN (08:16)
[2018-09-25 08:32] LABS: BUN/Creatinine Ratio 21 (6-26); Blood Urea Nitrogen 11 mg/dL (8-23); Calcium 8.1 mg/dL (8.6-10.3); Carbon Dioxide 27 mEq/L (23-29); Chloride 110 mEq/L (98-107); Glucose 108 mg/dL (70-105); Osmolality,Calculated 294 (280-300); Potassium 3.7 mEq/L (3.5-5.1); Sodium 142 mEq/L (136-145); eGFR For Non-African Americans > 60 (> 60)
[2018-09-25] MEDS: FLUoxetine 20 MG CAPSULE PO SCH (08:41)
[2018-09-25] MEDS ORDERED: Cyanocobalamin (B-12) 1,000 MCG TABLET PO SCH (09:00)
[2018-09-25] MEDS ORDERED: Folic Acid 1 MG TABLET PO SCH (09:00)
[2018-09-25] MEDS ORDERED: Hydroxyurea 500 MG CAPSULE PO SCH (11:15)
[2018-09-25 11:23] VITALS: BP 104/60
--- NOTE | 2018-09-25 13:21 | Physician Discharge Referral ---
<Enrique Chan S - Last Filed: 09/25/18 13:19> Home Health/Hosp Referral Info Transfer to: Home Health Provider in Charge Post Discharge: PCP - Diagnosis (1) Anemia due to GI blood loss Priority: Primary Status: Acute (2) Anemia Priority: Secondary Status: Chronic (3) COPD (chronic obstructive pulmonary disease) with emphysema Priority: Secondary Status: Chronic (4) CAD (coronary artery disease) Priority: Secondary Status: Chronic (5) Hypertension Priority: Secondary Status: Chronic (6) DVT prophylaxis Priority: Secondary Status: Chronic (7) Compression fracture of L4 vertebra Priority: Secondary Status: Chronic (8) Melena Priority: Secondary Status: Acute (9) Upper GI bleed Priority: Secondary Status: Acute - Respiratory Orders Smoking Cessation: Smoking cessation has been advised. For more information, call the [employer] Quit Line at 1-700-DVBQ-NOW. - Diet/Nutrition Diet/Nutrition Orders: Cardiac - Activity Activity Orders: Up ad crys - Services Needed Following services are medically necessary services: Home Health Aide, Physical Therapy, Occupational Therapy - Transfer Medications Prescriptions: Pantoprazole Sodium [Protonix] 40 mg PO BID 30 Days #60 tablet. Sucralfate [Carafate] 1 gm PO QIDAC 30 Days #120 udc Home Medications: Albuterol Sulfate [Albuterol Inhaler] 1 puff IH Q4-6H PRN 06/18/15 [History] Furosemide [Lasix] 40 mg PO DAILY 06/18/15 [History] Ipratropium [ATROVENT Inhaler] 2 puff IH BID 06/18/15 [History] Lidocaine Patch [Lidoderm 5% patch] 1 appl TP DAILY PRN 06/18/15 [History] Metoprolol XL (24 HR) Succ [Toprol Xl] 12.5 mg PO BID 12/24/15 [History] Cyanocobalamin (B-12) [Vitamin B12] 1,000 mcg PO DAILY #90 tablet 07/24/17 [Rx] Folic Acid 1 tab PO DAILY #90 tablet 07/24/17 [Rx] Hydroxyurea [Hydrea] 500 mg PO Q48H 02/12/18 [History] Colesevelam HCl [Welchol] 625 mg PO TIDWM 02/13/18 [History] ALPRAZolam [Xanax 1 MG Tablet] 1 mg PO TID PRN 09/22/18 [History] Aspirin [Lo-Dose Aspirin EC] 81 mg PO DAILY 09/22/18 [History] FLUoxetine HCl [Fluoxetine HCl] 40 mg PO DAILY 09/22/18 [History] Pantoprazole Sodium [Protonix] 40 mg PO BID 30 Days #60 tablet. 09/25/18 [Rx] Sucralfate [Carafate] 1 gm PO QIDAC 30 Days #120 udc 09/25/18 [Rx] Allergies/Adverse Reactions: Allergy/AdvReac Type Severity Reaction Status Date / Time prednisone Allergy Intermediate Hives Verified 09/22/18 15:47 gabapentin [From Neurontin] AdvReac Unknown Nausea Verified 09/22/18 15:47 ibuprofen AdvReac Unknown Hives Verified 09/22/18 15:47 naproxen [From Naprosyn] AdvReac Unknown Nausea Verified 09/22/18 15:47 Certification: Further, I certify that my clinical findings support that this patient is homebound (i.e. absences from home require considerable and taxing effort and are for medical reasons or jew services or infrequently or short duration when for other reasons) because: Homebound Reason: Leaving home requires considerable and taxing effort due to condition Attestation: My signature below is to certify that this patient is under my care and that I, or nurse practitioner, or a physician's assistant housekeeping manager working with me, has a [id number] encounter with this patient. <Roberta Hollis - Last Filed: 09/25/18 13:25> - Diagnosis (1) COPD (chronic obstructive pulmonary disease) with emphysema Status: Chronic (2) CAD (coronary artery disease) Status: Chronic (3) Hypertension Status: Chronic (4) DVT prophylaxis Status: Chronic (5) Compression fracture of L4 vertebra Status: Chronic (6) Anemia due to GI blood loss Status: Acute (7) Thrombocytosis Status: Chronic (8) GI bleed Status: Acute (9) Hypotension Status: Acute - Respiratory Orders Smoking Cessation: Smoking cessation has been advised. For more information, call the [place] [employer] Quit Line at 6-779-NELS-NOW. - Services Needed Following services are medically necessary services: Nursing Certification: Further, I certify that my clinical findings support that this patient is homebound (i.e. absences from home require considerable and taxing effort and ar e for medical reasons or jew services or infrequently or short duration when for other reasons) because: Attestation: My signature below is to certify that this patient is under my care and that I, or nurse practitioner, or a physician's assistant housekeeping manager working with me, has a [id number] encounter with this patient.
== END 2018-09-25 14:26 | disposition home or self-care (01) | DRG 378 ==
LOC: EMEROOARM 09:05 → 3ANU 09:05 → SUATTDRO 10:46 → 3ANU 11:31
PROVIDERS: ADMIT Internal Medicine; ATTEND Internal Medicine
PROC: ENDOEBX (2018-09-23 10:00)

== ENCOUNTER 2020-04-04 11:44 | Inpatient (IN) ==
[2020-04-04] MEDS ORDERED: Isovue-370 500 ML BOTTLE IVP ONE (11:57)
[2020-04-04 12:11] LABS: Basophils % 0.4 %; Eosinophils # 0.2 K/mcL (0.0-0.6); Eosinophils % 3.2 %; Hematocrit 35.4 % (35.3-44.9); Immature Granulocytes % 0.4 % (0-4); Lymphocytes # 1.3 K/mcL (0.6-4.6); Lymphocytes % 24.6 %; Mean Corpuscular HGB Conc 31.1 g/dL (31.6-35.5); Mean Corpuscular Hemoglobin 35.1 pg (28.0-33.3); Mean Corpuscular Volume 113.1 fL (83.0-100.0); Mean Platelet Volume 10.9 fL (9.4-12.4); Monocytes # 0.6 K/mcL (0.0-1.3); Monocytes % 10.8 %; Neutrophils # 3.3 K/mcL (1.6-8.9); Nucleated Red Blood Cells 0.6 /100 WBC (0); Platelet Count 412 K/mcL (140-400); Red Blood Count 3.13 M/mcL (3.82-4.97); Red Cell Distribution Width 13.7 % (11.5-14.5); Segmented Neutrophils % 60.6 %; White Blood Count 5.4 K/mcL (4.3-11.1)
[2020-04-04 12:38] LABS: Alanine Aminotransferase 7 Units/L (7-52); Albumin 3.7 g/dL (3.5-5.7); Albumin/Globulin Ratio 1.2 (1.1-2.2); Alkaline Phosphatase 73 Units/L (34-104); Aspartate Amino Transferase 13 Units/L (13-39); BUN/Creatinine Ratio 13 (6-26); Blood Urea Nitrogen 13 mg/dL (8-23); Calcium 8.9 mg/dL (8.6-10.3); Carbon Dioxide 28 mEq/L (23-29); Chloride 101 mEq/L (98-107); Glucose 142 mg/dL (70-105); Osmolality,Calculated 285 (280-300); Potassium 3.5 mEq/L (3.5-5.1); Sodium 136 mEq/L (136-145); Total Protein 6.7 g/dL (6.4-8.9); Troponin I 0.05 ng/mL (< 0.04); eGFR For African Americans > 60 (> 60); eGFR For Non-African Americans 54 (> 60)
[2020-04-04 12:40] LABS: Platelet Estimate Normal (Normal)
[2020-04-04] MEDS: DilTIAZem 50 MG/50 ML IV.SOLN IVC SCH (13:17)
[2020-04-04] MEDS ORDERED: Furosemide 20 MG/2 ML VIAL IVP ONE (13:59)
[2020-04-04] MEDS ORDERED: Azithromycin 500 MG in 0.9 % Sodium Chloride 250 ML IVPB ONE (14:02)
[2020-04-04] MEDS ORDERED: cefTRIAXone 1,000 MG in Water for inj. (sterile) 10 ML IVP ONE (14:02)
[2020-04-04] MEDS ORDERED: Naloxone 0.4 MG/ML INJ IVP PRN (14:23)
[2020-04-04] MEDS ORDERED: Ondansetron 4 MG/2 ML VIAL IVP PRN (14:23)
[2020-04-04] MEDS ORDERED: *HR* HYDROcodone/Acet 5/325 mg TABLET PO PRN (14:23)
[2020-04-04] MEDS ORDERED: Metoprolol XL (24 HR) Succ 25 MG TAB.ER.24H PO ONE (14:31)
[2020-04-04] MEDS ORDERED: *HR* Heparin 5,000 UNIT/ML VIAL IVP PRN ×2 (14:51)
[2020-04-04] MEDS ORDERED: *HR* Heparin 5,000 UNIT/ML VIAL IVP ONE (14:51)
[2020-04-04 15:14] LABS: Basophils % 0.4 %; Eosinophils # 0.1 K/mcL (0.0-0.6); Eosinophils % 2.3 %; Hematocrit 31.9 % (35.3-44.9); Hemoglobin 10.1 g/dL (11.5-15.4); Immature Granulocytes % 0.2 % (0-4); Lymphocytes # 1.1 K/mcL (0.6-4.6); Lymphocytes % 20.1 %; Mean Corpuscular HGB Conc 31.7 g/dL (31.6-35.5); Mean Corpuscular Hemoglobin 35.8 pg (28.0-33.3); Mean Corpuscular Volume 113.1 fL (83.0-100.0); Mean Platelet Volume 11.1 fL (9.4-12.4); Monocytes # 0.6 K/mcL (0.0-1.3); Monocytes % 11.1 %; Neutrophils # 3.4 K/mcL (1.6-8.9); Nucleated Red Blood Cells 0.4 /100 WBC (0); Platelet Count 358 K/mcL (140-400); Red Blood Count 2.82 M/mcL (3.82-4.97); Red Cell Distribution Width 13.7 % (11.5-14.5); Segmented Neutrophils % 65.9 %; White Blood Count 5.2 K/mcL (4.3-11.1)
[2020-04-04 15:29] LABS: Magnesium 1.9 mg/dL (1.6-2.6); Phosphorous 3.6 mg/dL (2.7-4.5)
[2020-04-04] MEDS: Levalbuterol Neb 0.63 MG/3 ML IH SCH ×2 (15:47→21:59)
[2020-04-04 15:53] LABS: Platelet Estimate Normal (Normal)
[2020-04-04 16:02] LABS: ABG Base Excess 4 mEq/L (-2 to 3); ABG HCO3 29 mEq/L (21-27); ABG Oxygen Saturation 99 % (95-98); ABG PCO2 46 mmHg (35-45); ABG PO2 150 mmHg (85-104); ABG TCO2 30 mEq/L (20-26)
[2020-04-04 16:59] LABS: Hematocrit 33.9 % (35.3-44.9); Hemoglobin 10.6 g/dL (11.5-15.4); Mean Corpuscular HGB Conc 31.3 g/dL (31.6-35.5); Mean Corpuscular Hemoglobin 35.5 pg (28.0-33.3); Mean Corpuscular Volume 113.4 fL (83.0-100.0); Mean Platelet Volume 10.8 fL (9.4-12.4); Platelet Count 381 K/mcL (140-400); Red Blood Count 2.99 M/mcL (3.82-4.97); Red Cell Distribution Width 13.7 % (11.5-14.5); White Blood Count 5.9 K/mcL (4.3-11.1)
[2020-04-04 17:09] LABS: INR 1.2; Prothrombin Time 14.1 Seconds (9.4-12.1)
[2020-04-04 17:12] LABS: Heparin anti-factor XA UFH < 0.04 IU/mL (0.30-0.70)
[2020-04-04] MEDS: Heparin 25,000UNIT/250ML 1/2NS 25,000 UNIT/250 ML IV.SOLN IVC SCH (19:11)
[2020-04-04] MEDS: Furosemide 20 MG/2 ML VIAL IVP SCH (23:11)
[2020-04-05] MEDS: DilTIAZem 50 MG/50 ML IV.SOLN IVC SCH ×3 (00:46→09:56)
[2020-04-05 01:13] LABS: Macrocytosis Present (Not Present)
[2020-04-05 01:14] LABS: Platelet Estimate Normal (Normal)
[2020-04-05 01:35] LABS: Basophils % 0.5 %; Eosinophils # 0.1 K/mcL (0.0-0.6); Hematocrit 30.6 % (35.3-44.9); Hemoglobin 9.2 g/dL (11.5-15.4); Immature Granulocytes % 0.2 % (0-4); Lymphocytes # 1.2 K/mcL (0.6-4.6); Lymphocytes % 28.2 %; Mean Corpuscular HGB Conc 30.1 g/dL (31.6-35.5); Mean Corpuscular Volume 116.3 fL (83.0-100.0); Mean Platelet Volume 11.2 fL (9.4-12.4); Monocytes # 0.5 K/mcL (0.0-1.3); Monocytes % 11.6 %; Neutrophils # 2.5 K/mcL (1.6-8.9); Platelet Count 309 K/mcL (140-400); Red Blood Count 2.63 M/mcL (3.82-4.97); Red Cell Distribution Width 13.7 % (11.5-14.5); Segmented Neutrophils % 56.5 %; White Blood Count 4.4 K/mcL (4.3-11.1)
[2020-04-05] MEDS: Levalbuterol Neb 0.63 MG/3 ML IH SCH ×4 (03:48→21:41)
[2020-04-05] MEDS ORDERED: Metoprolol XL (24 HR) Succ 50 MG TAB.ER.24H PO SCH ×2 (09:00→10:46)
[2020-04-05 09:01] LABS: Calcium 8.3 mg/dL (8.6-10.3); Potassium 3.3 mEq/L (3.5-5.1)
[2020-04-05] MEDS: levoFLOXacin 750 MG TABLET PO SCH (09:57)
[2020-04-05] MEDS: Furosemide 20 MG/2 ML VIAL IVP SCH ×2 (10:02→20:11)
[2020-04-05] MEDS ORDERED: Magnesium Sulfate 1 GM/102 ML PIGGYBACK IVPB ONE (10:43)
[2020-04-05] MEDS ORDERED: Metoprolol XL (24 HR) Succ 25 MG TAB.ER.24H PO ONE (12:12)
[2020-04-05 17:49] LABS: Acinetobacter baumannii by PCR Not Detected (Not Detect); Enterobacter cloacae Cmplx PCR Not Detected (Not Detect); Enterobacteriaceae by PCR Not Detected (Not Detect); Enterococcus by PCR Not Detected (Not Detect); Escherichia coli by PCR Not Detected (Not Detect); Klebsiella oxytoca by PCR Not Detected (Not Detect); Klebsiella pneumoniae by PCR Not Detected (Not Detect); Staphylococcus aureus by PCR Not Detected (Not Detect); Staphylococcus by PCR DETECTED (Not Detect); Streptococcus agalactiae(B)PCR Not Detected (Not Detect); Streptococcus by PCR Not Detected (Not Detect); Streptococcus pneumoniae PCR Not Detected (Not Detect); Streptococcus pyogenes (A) PCR Not Detected (Not Detect); mecA Methicillin-Resist Gene DETECTED (Not Detect)
[2020-04-05 17:50] LABS: Candida albicans by PCR Not Detected (Not Detect); Candida glabrata by PCR Not Detected (Not Detect); Candida krusei by PCR Not Detected (Not Detect); Candida parapsilosis by PCR Not Detected (Not Detect); Candida tropicalis by PCR Not Detected (Not Detect); Proteus by PCR Not Detected (Not Detect); Pseudomonas aeruginosa by PCR Not Detected (Not Detect); Serratia marcescens by PCR Not Detected (Not Detect)
[2020-04-05] MEDS ORDERED: Vancomycin 1,250 MG/262.5 ML IV.SOLN IVPB SCH (19:00)
[2020-04-05] MEDS ORDERED: Vancomycin (wt based) 1,000 MG VIAL IV SCH (21:00)
[2020-04-06] MEDS: DilTIAZem 50 MG/50 ML IV.SOLN IVC SCH ×2 (02:28→15:58)
[2020-04-06] MEDS: Heparin 25,000UNIT/250ML 1/2NS 25,000 UNIT/250 ML IV.SOLN IVC SCH (02:29)
[2020-04-06] MEDS ORDERED: 0.9 % Sodium Chloride 500 ML IVC ONE (04:00)
[2020-04-06] MEDS: Levalbuterol Neb 0.63 MG/3 ML IH SCH ×4 (04:03→22:29)
[2020-04-06] MEDS ORDERED: *HR* Digoxin 0.5 MG/2 ML AMPUL IVP ONE ×2 (07:17→15:57)
[2020-04-06] MEDS ORDERED: ALPRAZolam 1 MG TABLET PO PRN (07:19)
[2020-04-06 08:00] LABS: Basophils % 0.2 %; Eosinophils # 0.1 K/mcL (0.0-0.6); Eosinophils % 1.7 %; Hematocrit 28.6 % (35.3-44.9); Immature Granulocytes % 0.4 % (0-4); Lymphocytes # 0.7 K/mcL (0.6-4.6); Lymphocytes % 12.7 %; Mean Corpuscular HGB Conc 31.5 g/dL (31.6-35.5); Mean Corpuscular Hemoglobin 35.7 pg (28.0-33.3); Mean Corpuscular Volume 113.5 fL (83.0-100.0); Monocytes # 0.6 K/mcL (0.0-1.3); Monocytes % 11.3 %; Neutrophils # 3.9 K/mcL (1.6-8.9); Platelet Count 315 K/mcL (140-400); Red Blood Count 2.52 M/mcL (3.82-4.97); Segmented Neutrophils % 73.7 %; White Blood Count 5.3 K/mcL (4.3-11.1)
[2020-04-06] MEDS: Aspirin Enteric Coated 81 MG Tablet PO SCH (08:18)
[2020-04-06] MEDS: Furosemide 20 MG/2 ML VIAL IVP SCH ×3 (08:19→20:54)
[2020-04-06 08:54] LABS: Platelet Estimate Normal (Normal)
[2020-04-06 08:55] LABS: Toxic Granulation Present (Not Present)
[2020-04-06 08:56] LABS: Anisocytosis 1+ (Not Present)
[2020-04-06 08:57] LABS: Macrocytosis Present (Not Present)
[2020-04-06] MEDS ORDERED: Metoprolol XL (24 HR) Succ 25 MG TAB.ER.24H PO SCH (09:00)
[2020-04-06] MEDS ORDERED: Metoprolol XL (24 HR) Succ 50 MG TAB.ER.24H PO SCH (09:00)
[2020-04-06 10:19] LABS: BUN/Creatinine Ratio 11 (6-26); Blood Urea Nitrogen 11 mg/dL (8-23); Calcium 8.6 mg/dL (8.6-10.3); Carbon Dioxide 27 mEq/L (23-29); Chloride 105 mEq/L (98-107); Glucose 116 mg/dL (70-105); Osmolality,Calculated 286 (280-300); Phosphorous 3.2 mg/dL (2.7-4.5); Potassium 4.5 mEq/L (3.5-5.1); Sodium 138 mEq/L (136-145); eGFR For African Americans > 60 (> 60); eGFR For Non-African Americans 56 (> 60)
[2020-04-06] MEDS ORDERED: Metoprolol XL (24 HR) Succ 50 MG TAB.ER.24H PO ONE (11:29)
[2020-04-06] MEDS: Apixaban 5 MG TABLET PO SCH ×2 (11:46→20:54)
[2020-04-06] MEDS ORDERED: Amiodarone Premix 150 MG/100 ML BAG IVPB ONE (17:44)
[2020-04-06] MEDS ORDERED: Amiodarone 150 MG in D5% in Water 100 ML IVPB SCH (17:45)
[2020-04-06] MEDS ORDERED: Amiodarone Premix 360 MG/200 ML BAG IVC ONE (18:30)
[2020-04-06] MEDS: Metoprolol XL (24 HR) Succ 25 MG TAB.ER.24H PO SCH (20:55)
[2020-04-07] MEDS ORDERED: Amiodarone Premix 360 MG/200 ML BAG IVC ONE (00:30)
[2020-04-07] MEDS: Amiodarone Premix 360 MG/200 ML BAG IVC SCH ×2 (03:30→20:00)
[2020-04-07] MEDS: Levalbuterol Neb 0.63 MG/3 ML IH SCH ×4 (03:40→22:36)
[2020-04-07 06:58] LABS: Basophils % 0.2 %; Eosinophils # 0.2 K/mcL (0.0-0.6); Eosinophils % 3.7 %; Hematocrit 29.6 % (35.3-44.9); Hemoglobin 9.5 g/dL (11.5-15.4); Immature Granulocytes % 0.2 % (0-4); Lymphocytes # 0.8 K/mcL (0.6-4.6); Mean Corpuscular HGB Conc 32.1 g/dL (31.6-35.5); Mean Corpuscular Hemoglobin 36.4 pg (28.0-33.3); Mean Corpuscular Volume 113.4 fL (83.0-100.0); Mean Platelet Volume 11.2 fL (9.4-12.4); Monocytes # 0.8 K/mcL (0.0-1.3); Monocytes % 14.6 %; Neutrophils # 3.7 K/mcL (1.6-8.9); Platelet Count 294 K/mcL (140-400); Red Blood Count 2.61 M/mcL (3.82-4.97); Red Cell Distribution Width 13.9 % (11.5-14.5); Segmented Neutrophils % 66.3 %; White Blood Count 5.6 K/mcL (4.3-11.1)
[2020-04-07] MEDS: Apixaban 5 MG TABLET PO SCH ×2 (07:19→19:59)
[2020-04-07] MEDS: levoFLOXacin 750 MG TABLET PO SCH (07:19)
[2020-04-07] MEDS: Metoprolol XL (24 HR) Succ 25 MG TAB.ER.24H PO SCH (07:19)
[2020-04-07] MEDS: Aspirin Enteric Coated 81 MG Tablet PO SCH (07:19)
[2020-04-07] MEDS: Furosemide 20 MG/2 ML VIAL IVP SCH ×2 (07:20→19:59)
[2020-04-07 07:21] LABS: BUN/Creatinine Ratio 11 (6-26); Blood Urea Nitrogen 10 mg/dL (8-23); Calcium 8.9 mg/dL (8.6-10.3); Carbon Dioxide 29 mEq/L (23-29); Chloride 100 mEq/L (98-107); Glucose 111 mg/dL (70-105); Magnesium 1.8 mg/dL (1.6-2.6); Osmolality,Calculated 282 (280-300); Phosphorous 3.6 mg/dL (2.7-4.5); Potassium 4.2 mEq/L (3.5-5.1); Sodium 136 mEq/L (136-145); eGFR For African Americans > 60 (> 60); eGFR For Non-African Americans 59 (> 60)
[2020-04-07 07:26] LABS: Macrocytosis Present (Not Present); Platelet Estimate Normal (Normal)
[2020-04-07] MEDS ORDERED: Metoprolol XL (24 HR) Succ 25 MG TAB.ER.24H PO ONE (11:19)
[2020-04-07] MEDS: Metoprolol XL (24 HR) Succ 50 MG TAB.ER.24H PO SCH (19:59)
[2020-04-08 01:56] LABS: BUN/Creatinine Ratio 10 (6-26); Blood Urea Nitrogen 11 mg/dL (8-23); Calcium 8.7 mg/dL (8.6-10.3); Carbon Dioxide 32 mEq/L (23-29); Chloride 98 mEq/L (98-107); Glucose 102 mg/dL (70-105); Magnesium 1.7 mg/dL (1.6-2.6); Osmolality,Calculated 284 (280-300); Phosphorous 3.3 mg/dL (2.7-4.5); Potassium 3.9 mEq/L (3.5-5.1); Sodium 137 mEq/L (136-145); eGFR For African Americans > 60 (> 60); eGFR For Non-African Americans 51 (> 60)
[2020-04-08] MEDS: Levalbuterol Neb 0.63 MG/3 ML IH SCH ×4 (03:50→21:58)
[2020-04-08] MEDS: Aspirin Enteric Coated 81 MG Tablet PO SCH (07:17)
[2020-04-08] MEDS: Apixaban 5 MG TABLET PO SCH ×2 (07:17→20:33)
[2020-04-08] MEDS: Metoprolol XL (24 HR) Succ 50 MG TAB.ER.24H PO SCH ×2 (07:17→20:34)
[2020-04-08] MEDS: Furosemide 20 MG/2 ML VIAL IVP SCH (07:17)
[2020-04-08] MEDS ORDERED: Perflutren Lipid Microsphere 1.3 ML in 0.9 % Sodium Chloride 8.7 ML IVP PRN (08:17)
[2020-04-09] MEDS: Levalbuterol Neb 0.63 MG/3 ML IH SCH ×3 (05:18→16:48)
[2020-04-09 06:54] LABS: BUN/Creatinine Ratio 12 (6-26); Blood Urea Nitrogen 13 mg/dL (8-23); Calcium 8.9 mg/dL (8.6-10.3); Carbon Dioxide 32 mEq/L (23-29); Chloride 99 mEq/L (98-107); Glucose 103 mg/dL (70-105); Osmolality,Calculated 286 (280-300); Potassium 4.1 mEq/L (3.5-5.1); Sodium 138 mEq/L (136-145); eGFR For African Americans > 60 (> 60); eGFR For Non-African Americans 52 (> 60)
[2020-04-09] MEDS ORDERED: Furosemide 40 MG TABLET PO SCH (09:00)
[2020-04-09] MEDS: Metoprolol XL (24 HR) Succ 50 MG TAB.ER.24H PO SCH (09:02)
[2020-04-09] MEDS: levoFLOXacin 750 MG TABLET PO SCH (09:02)
[2020-04-09] MEDS: Apixaban 5 MG TABLET PO SCH (09:02)
[2020-04-09] MEDS: Aspirin Enteric Coated 81 MG Tablet PO SCH (09:02)
[2020-04-09 15:19] VITALS: BP 92/60
[2020-04-09] MEDS ORDERED: Ipratropium 1 PUFF INHALER IH SCH (22:00)
[2020-04-10] MEDS ORDERED: DilTIAZem CD (24hr) 120 MG CAP.ER.24H PO SCH (09:00)
== END 2020-04-09 17:42 | disposition home or self-care (01) | DRG 291 ==
LOC: EMEROOARM 11:44 → 2ANU 11:44 → SUATTDRO 04-06 12:41 → 2NNU 04-06 19:18
PROVIDERS: ADMIT Internal Medicine; ATTEND Internal Medicine